=== PATIENT | male | born 1950 | race Caucasian/White ===

== ENCOUNTER 2018-03-26 21:34 | Inpatient (IN) | payer BC, MEDICARE ==
[2018-03-26] MEDS ORDERED: ACETAMINOPHEN TAB 500 MG TAB PO STA (22:10)
[2018-03-26] MEDS ORDERED: IPRATROPIUM-ALBUTEROL 3 ML NEB INHALATION STA (22:22)
--- NOTE | 2018-03-26 22:28 | ED ---
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 Since to the emergency department via EMS from [place] where he is undergoing treatment for heroin addiction. Patient reports that his last use of IV heroin was Sunday of last week, 6 days ago. Patient reports that he injects using a needle into his legs. Patient states that he absolutely does not inject into his port which she has from previous chemotherapy for his lung cancer. The patient reports that for the past few days he's been experiencing URI-like symptoms, he states that he's had fevers at night, chills, sweats, productive cough and generalized fatigue. He reports that this is similar to previous episodes of asked. Patient states that he has had infections from IV heroin use in the past but has never had no carditis or any infection of his heart. Patient reports a cough that is become productive over the past couple of days, worse as high as 103 at home, which improve with antipyretics, fevers or worse at night and associated with diaphoresis and chills. Patient reports he is progressively becoming more fatigued and feels sicker which prompted him to asked to come to the emergency department today. - Related Data Allergies Allergy/AdvReac Type Severity Reaction Status Date / Time No Known Allergies Allergy Verified 03/26/18 21:55 Review of Systems ROS Statement: Those systems with pertinent positive or pertinent negative responses have been documented in the HPI. ROS Other: All systems not noted in ROS Statement are negative. Constitutional: Reports: fever, chills, weakness, night sweats ENT: Denies: throat pain Respiratory: Reports: cough, dyspnea, wheezes Cardiovascular: Reports: palpitations, dyspnea on exertion Endocrine: Reports: fatigue Gastrointestinal: Reports: nausea. Denies: abdominal pain Genitourinary: Denies: dysuria Skin: Denies: rash Neurological: Reports: weakness Past Medical History Past Medical History: Cancer Additional Past Medical History / Comment(s): lung cancer History of Any Multi-Drug Resistant Organisms: None Reported Additional Past Surgical History / Comment(s): right upper lobectomy- lung Past Psychological History: Anxiety, Depression Smoking Status: Current every day smoker Past Alcohol Use History: None Reported Past Drug Use History: None Reported General Exam Limitations: no limitations General appearance: alert, cachectic, other (Appears older than stated age, ill- appearing) Head exam: Present: atraumatic, normocephalic Eye exam: Present: PERRL, other (No torres spots) ENT exam: Present: mucous membranes dry Neck exam: Present: normal inspection Respiratory exam: Present: wheezes, other (Port present in the right chest) Cardiovascular Exam: Present: normal rhythm, tachycardia, other (Cardiac exam limited by tachypnea, tachycardia and wheezing no obvious murmur) GI/Abdominal exam: Present: soft, other (Scaphoid abdomen). Absent: distended Rectal exam: Present: deferred Extremities exam: Present: full ROM, normal capillary refill, other (No Janeway lesions, no Osler nodes, no splinter hemorrhages in the nails, mild clubbing is noted, bilateral lower extremities have multiple sores in variable stages of healing consistent with IV heroin use or skin popping). Absent: pedal edema Back exam: Present: normal inspection Neurological exam: Present: alert, oriented X3 Psychiatric exam: Present: normal affect, normal mood Skin exam: Present: warm, dry Course Vital Signs 03/26/18 03/26/18 03/26/18 21:52 22:33 22:39 Temperature 102.0 F H Pulse Rate 124 H 122 H 124 H Respiratory 20 20 18 Rate Blood Pressure 119/67 O2 Sat by Pulse 95 Oximetry 03/27/18 00:27 Temperature 100.2 F H Pulse Rate 111 H Respiratory 20 Rate Blood Pressure 102/69 O2 Sat by Pulse 93 L Oximetry Medical Decision Making - Medical Decision Making The patient was seen and evaluated, history was obtained from the patient Vital signs were reviewed patient is noted to be tachycardic and febrile She with a history of IV heroin use and lung cancer, 2 out of 4 Sirs criteria and concern for pneumonia, septic workup was ordered Noted To be wheezing and DuoNeb's were orderedt Physical exam reveals no sequela of endocarditis that the patient is very high risk due to his IV drug abuse The port in the right chest is well-healed with no surrounding erythema or signs of infection. Patient denies using the port for IV heroin use. EKG reveals sinus tachycardia with a rate of 116, normal axis, normal intervals , DE 120, QRS 72, QTc 444, there are no acute ST elevations or depressions. No evidence of acute ischemia or infarction. Labs reveal leukocytosis with neutrophilia, consistent with an acute infection X-ray with possible right lower lobe infiltrate The patient risk factors including immunosuppression from previous cancer and IV drug abuse, I will treat with broad-spectrum antibiotics for suspected endocarditis with septic applied. They, is and cefepime were ordered At this time I feel the patient requires admission to the hospital for further treatment and evaluation including but not limited to IV antibiotics, IV fluid resuscitation and an echocardiogram to evaluate for department I did, this was discussed with the patient who is agreeable. Admission orders were placed. Tylenol and Motrin were ordered for antipyretics and discomfort, patient currently no narcotics were ordered. - Lab Data Result diagrams: 03/26/18 23:15 03/26/18 23:15 Lab Results 03/26/18 03/26/18 03/26/18 Range/Units 23:15 23:15 23:15 WBC 17.9 H (3.8-10.6) k/uL RBC 4.95 (4.30-5.90) m/uL Hgb 13.5 (13.0-17.5) gm/dL Hct 43.8 (39.0-53.0) % MCV 88.5 (80.0-100.0) fL MCH 27.4 (25.0-35.0) pg MCHC 30.9 L (31.0-37.0) g/dL RDW 14.8 (11.5-15.5) % Plt Count 392 (150-450) k/uL Neutrophils % 84 % Lymphocytes % 8 % Monocytes % 4 % Eosinophils % 2 % Basophils % 0 % Neutrophils # 15.1 H (1.3-7.7) k/uL Lymphocytes # 1.4 (1.0-4.8) k/uL Monocytes # 0.8 (0-1.0) k/uL Eosinophils # 0.4 (0-0.7) k/uL Basophils # 0.1 (0-0.2) k/uL PT (9.0-12.0) sec INR (<1.2) APTT (22.0-30.0) sec Sodium 136 L (137-145) mmol/L Potassium 4.8 (3.5-5.1) mmol/L Chloride 106 (98-107) mmol/L Carbon Dioxide 24 (22-30) mmol/L Anion Gap 6 mmol/L BUN 31 H (9-20) mg/dL Creatinine 0.80 (0.66-1.25) mg/dL Est GFR (CKD-EPI)AfAm >90 (>60 ml/min/1.73 sqM) Est GFR (CKD-EPI)NonAf >90 (>60 ml/min/1.73 sqM) Glucose 113 H (74-99) mg/dL Plasma Lactic Acid Sunday 1.0 (0.7-2.0) mmol/L Calcium 9.1 (8.4-10.2) mg/dL Total Bilirubin 0.3 (0.2-1.3) mg/dL AST 25 (17-59) U/L ALT 32 (21-72) U/L Alkaline Phosphatase 59 (38-126) U/L Troponin I (0.000-0.034) ng/mL Total Protein 7.0 (6.3-8.2) g/dL Albumin 3.7 (3.5-5.0) g/dL 03/26/18 03/26/18 Range/Units 23:15 23:15 WBC (3.8-10.6) k/uL RBC (4.30-5.90) m/uL Hgb (13.0-17.5) gm/dL Hct (39.0-53.0) % MCV (80.0-100.0) fL MCH (25.0-35.0) pg MCHC (31.0-37.0) g/dL RDW (11.5-15.5) % Plt Count (150-450) k/uL Neutrophils % % Lymphocytes % % Monocytes % % Eosinophils % % Basophils % % Neutrophils # (1.3-7.7) k/uL Lymphocytes # (1.0-4.8) k/uL Monocytes # (0-1.0) k/uL Eosinophils # (0-0.7) k/uL Basophils # (0-0.2) k/uL PT 9.7 (9.0-12.0) sec INR 1.0 (<1.2) APTT 24.4 (22.0-30.0) sec Sodium (137-145) mmol/L Potassium (3.5-5.1) mmol/L Chloride (98-107) mmol/L Carbon Dioxide (22-30) mmol/L Anion Gap mmol/L BUN (9-20) mg/dL Creatinine (0.66-1.25) mg/dL Est GFR (CKD-EPI)AfAm (>60 ml/min/1.73 sqM) Est GFR (CKD-EPI)NonAf (>60 ml/min/1.73 sqM) Glucose (74-99) mg/dL Plasma Lactic Acid Sunday (0.7-2.0) mmol/L Calcium (8.4-10.2) mg/dL Total Bilirubin (0.2-1.3) mg/dL AST (17-59) U/L ALT (21-72) U/L Alkaline Phosphatase (38-126) U/L Troponin I <0.012 (0.000-0.034) ng/mL Total Protein (6.3-8.2) g/dL Albumin (3.5-5.0) g/dL Disposition Clinical Impression: Sepsis, Pneumonia, Intravenous drug abuse, Acute exacerbation of chronic obstructive airways disease Disposition: ADMITTED IP TO THIS HOSP Condition: Fair Referrals: None,Stated [REFERRING] - 1-2 days Decision Time: 00:41
[2018-03-26] MEDS: SODIUM CHLORIDE 0.9% 500 ML IV SCH ×2 (23:00→23:44)
[2018-03-26 23:29] LABS: Basophils # (A) 0.1 k/uL (0-0.2); Basophils % (A) 0 %; Eosinophils # (A) 0.4 k/uL (0-0.7); Eosinophils % (A) 2 %; HCT 43.8 % (39.0-53.0); HGB 13.5 gm/dL (13.0-17.5); Lymphocytes # (A) 1.4 k/uL (1.0-4.8); Lymphocytes % (A) 8 %; MCH 27.4 pg (25.0-35.0); MCHC 30.9 g/dL (31.0-37.0); MCV 88.5 fL (80.0-100.0); Mean Platelet Volume 7.2; Monocytes # (A) 0.8 k/uL (0-1.0); Monocytes % (A) 4 %; Neutrophils # (A) 15.1 k/uL (1.3-7.7); Neutrophils % (A) 84 %; Platelet Count 392 k/uL (150-450); RBC 4.95 m/uL (4.30-5.90); RDW 14.8 % (11.5-15.5); WBC 17.9 k/uL (3.8-10.6)
--- NOTE | 2018-03-26 23:30 | XR ---
EXAMINATION TYPE: XR chest 2V DATE OF EXAM: 03/26/2018 COMPARISON: None HISTORY: Fever and coughing TECHNIQUE: Frontal and lateral views of the chest are obtained. FINDINGS: There is right central venous catheter with tip in the superior vena cava. Heart size is n ormal. Trachea is deviated slightly to the right side. There is pleural thickening at the right lung apex. There is blunting of right costophrenic angle and elevated right diaphragm. There is overall pu lmonary hyperinflation. Bony thorax is intact. There is slight increased density inferior to the right pulmonary hilum on the frontal view consisten t with minimal infiltrate. IMPRESSION: There is pleural diaphragmatic scarring at the right lung base and also pleural thickeni ng at the right lung apex. There is slight volume loss. There is underlying COPD. There is subtle inc reased density in the right lower lobe at the right pulmonary hilum that could relate to minimal infi ltrate. Comparison with old exam would be helpful.
[2018-03-26 23:36] LABS: Partial Thromboplastin Time 24.4 sec (22.0-30.0); Prothrombin Time 9.7 sec (9.0-12.0)
[2018-03-26 23:41] LABS: ALT 32 U/L (21-72); AST 25 U/L (17-59); Albumin 3.7 g/dL (3.5-5.0); Alkaline Phosphatase 59 U/L (38-126); Anion Gap 6 mmol/L; Blood Urea Nitrogen 31 mg/dL (9-20); Calcium 9.1 mg/dL (8.4-10.2); Carbon Dioxide 24 mmol/L (22-30); Chloride 106 mmol/L (98-107); Glucose 113 mg/dL (74-99); Potassium 4.8 mmol/L (3.5-5.1); Sodium 136 mmol/L (137-145); Total Bilirubin 0.3 mg/dL (0.2-1.3)
[2018-03-27] MEDS ORDERED: CEFEPIME 1 GM in SODIUM CHLORIDE 0.9% 50 ML IVPB STA (00:19)
[2018-03-27] MEDS ORDERED: VANCOMYCIN IV PER PHARMACY 1 EACH MISC MISCELLANE PRN (00:19)
[2018-03-27] MEDS ORDERED: NALOXONE 0.4 MG/ML 1 ML VIAL IV PRN (00:20)
[2018-03-27] MEDS ORDERED: IBUPROFEN 400 MG TAB PO PRN (00:20)
[2018-03-27] MEDS: SODIUM CHLORIDE 0.9% 500 ML IV SCH ×2 (00:49→00:50)
[2018-03-27] MEDS ORDERED: VANCOMYCIN 1,250 MG in SODIUM CHLORIDE 0.9% 250 ML IVPB ONE (01:00)
[2018-03-27 01:17] LABS: Amorphous Sediment,Urine Rare /hpf; Appearance,Urine Clear (Clear); Bilirubin,Urine Negative (Negative); Blood,Urine Negative (Negative); Color,Urine Yellow; Glucose,Urine (UA) Negative (Negative); Ketones,Urine Negative (Negative); Leukocyte Esterase,Urine Large (Negative); Mucus,Urine Rare /hpf; Nitrite,Urine Negative (Negative); PH, Urine 6.5 (5.0-8.0); Protein,Urine 1+ (Negative); Specific Gravity,Urine 1.013 (1.001-1.035); Squamous Epithelial Cell,Urine 1 /hpf (0-4); Urobilinogen,Urine <2.0 mg/dL (<2.0); WBC,Urine 20 /hpf (0-5)
[2018-03-27 08:04] LABS: Basophils % (A) 0 %; Eosinophils # (A) 0.2 k/uL (0-0.7); Eosinophils % (A) 2 %; HCT 39.3 % (39.0-53.0); HGB 12.4 gm/dL (13.0-17.5); Lymphocytes # (A) 1.4 k/uL (1.0-4.8); Lymphocytes % (A) 10 %; MCHC 31.5 g/dL (31.0-37.0); MCV 88.8 fL (80.0-100.0); Monocytes # (A) 0.7 k/uL (0-1.0); Monocytes % (A) 5 %; Neutrophils # (A) 10.8 k/uL (1.3-7.7); Neutrophils % (A) 81 %; Platelet Count 321 k/uL (150-450); RBC 4.43 m/uL (4.30-5.90); RDW 14.7 % (11.5-15.5); WBC 13.4 k/uL (3.8-10.6)
[2018-03-27 08:20] LABS: Anion Gap 2 mmol/L; Blood Urea Nitrogen 23 mg/dL (9-20); Calcium 8.4 mg/dL (8.4-10.2); Carbon Dioxide 27 mmol/L (22-30); Chloride 111 mmol/L (98-107); Glucose 83 mg/dL (74-99); Potassium 4.7 mmol/L (3.5-5.1); Sodium 140 mmol/L (137-145)
[2018-03-27] MEDS: NICOTINE 21MG/24HR PATCH TRANSDERM SCH (10:04)
[2018-03-27] MEDS: LEVOFLOXACIN 750MG-D5W PMX 750 MG in DEXTROSE/WATER 1 150ML.BAG IVPB SCH (10:07)
[2018-03-27] MEDS: SODIUM CHLORIDE 0.9% 1,000 ML IV SCH ×3 (10:09→17:07)
--- NOTE | 2018-03-27 12:09 | P.CONS ---
History of Present Illness - Reason for Consult Consult date: 03/27/18 Sepsis, pneumonia, IV drug abuse - History of Present Illness This is a 67-year-old male patient who has a significant past medical history for lung cancer, unknown type treated in 2014 status post right upper lobectomy followed by chemotherapy and radiation therapy. He had no follow-up since 2014. Note the patient has a port that remains in place since that time. He has history of IV drug abuse starting when he was 16 years of age using heroin. His last heroin use was one week ago and he usually injects in his legs mostly his right leg around the knee area. He denies ever using his port for heroin. He recently entered [place] for rehab and has done this on occasions in the past and was abstinent from heroin for up to 6 years. he states that 2 days ago he started having a fever and felt very fatigued and his legs felt like lead. He also developed shortness of breath. He has a chronic cough that is usually white production but now he has a continued cough with sputum of yellow and green color. He denies any blood in his sputum. He denies history of MRSA. He has had no nausea or vomiting but decreased appetite for the last couple of days. His bowel movements have been soft but not diarrhea. He denies any skin changes or abscesses from IV injection. He does complain of chronic right groin pain that makes it sometimes difficult to ambulate. Patient came into [facility] emergency center for evaluation where he was found to be tachycardic, temperature 102, white count 17.9. Urine was clear, leukoesterase large and PVCs 20. Patient denies any urinary pain or burning. Chest x-ray revealed pleural diaphragmatic scarring at the right lung base and also pleural thickening at the right lung apex. There is slight volume loss. Underlying COPD. Subtle increased density in the right lower lobe at the right pulmonary hilum that could relate to minimal infiltrate. Patient was given cefepime and vancomycin and admitted to the [facility] floor. Echocardiogram ordered, blood cultures status received. Patient is currently homeless. Review of Systems All systems: negative Constitutional: Reports anorexia, Reports chills, Reports fatigue, Reports fever , Reports malaise, Reports poor appetite, Reports weakness Eyes: denies blurred vision, denies pain Ears, nose, mouth and throat: Denies dental pain, Denies headache, Denies mouth pain, Denies sore throat, Denies vertigo, Denies voice changes Cardiovascular: Reports lightheadedness, Reports shortness of breath, Denies chest pain, Denies edema, Denies leg edema, Denies syncope Respiratory: Reports cough with sputum, Reports dyspnea, Denies congestion, Denies cough, Denies excessive sputum, Denies hemoptysis, Denies home oxygen Gastrointestinal: Reports loss of appetite, Denies abdominal pain, Denies diarrhea, Denies melena, Denies nausea, Denies vomiting Genitourinary: Denies dysuria, Denies urinary frequency Musculoskeletal: Reports myalgias, Denies frequent falls Musculoskeletal: right: hip pain Integumentary: Denies pruritus, Denies rash, Denies wounds Neurological: Denies confusion, Denies numbness, Denies weakness Psychiatric: Denies anxiety, Denies depression Endocrine: Denies fatigue, Denies weight change Past Medical History Past Medical History: Cancer Additional Past Medical History / Comment(s): lung cancer treated in 2014 status post right upper lobectomy, chemotherapy and radiation therapy History of Any Multi-Drug Resistant Organisms: None Reported Additional Past Surgical History / Comment(s): right upper lobectomy- lung, port placement Past Psychological History: Anxiety, Depression Smoking Status: Current every day smoker Past Alcohol Use History: None Reported Additional Past Alcohol Use History / Comment(s): is a smoker of a half a pack of cigarettes per day since he was 16 years of age. He is also used heroin IV off-and-on since he was 16 years of age. Patient is homeless. Past Drug Use History: None Reported Medications and Allergies Home Medications Medication Instructions Recorded Confirmed Type Acetaminophen Tab [Tylenol Tab] 650 mg PO Q4H PRN 03/27/18 03/27/18 History Albuterol Inhaler [Ventolin Hfa 1 - 2 puff INHALATION RT-Q6H PRN 03/27/18 History Inhaler] Calcium/Magnesium 1000mg/500mg 1 tab PO TID PRN 03/27/18 03/27/18 History Chlorpheniramine Maleate 4 mg PO Q4H PRN 03/27/18 03/27/18 History [Chlor-Trimeton] Fluticasone/Salmeterol [Advair 1 puff INHALATION RT-BID@06,1730 03/27/18 History 250-50 Diskus] Ibuprofen [Motrin] 1 tab PO Q6HR PRN 03/27/18 03/27/18 History Multivitamins, Thera [Multivitamin 1 tab PO DAILY 03/27/18 03/27/18 History (formulary)] Ondansetron HCl [Zofran] 8 mg PO Q6H PRN 03/27/18 03/27/18 History Ondansetron [Zofran] 4 mg IM Q6H PRN 03/27/18 03/27/18 History Thiamine [Vitamin B-1] 100 mg PO DAILY 03/27/18 03/27/18 History busPIRone HCl [Buspar] 10 mg PO DIRECTED PRN 03/27/18 03/27/18 History cloNIDine HCL [Catapres] 0.1 mg PO Q4H PRN 03/27/18 03/27/18 History traZODone HCL 50 - 150 mg PO HS 03/27/18 03/27/18 History Allergies Allergy/AdvReac Type Severity Reaction Status Date / Time No Known Allergies Allergy Verified 03/27/18 10:41 Physical Exam Vitals: Vital Signs Temp Pulse Resp BP Pulse Ox 03/27/18 08:12 97.2 F L 87 18 163/87 98 03/27/18 06:21 84 20 134/68 99 03/27/18 04:22 58 L 20 139/84 93 L 03/27/18 00:27 100.2 F H 111 H 20 102/69 93 L 03/26/18 22:39 124 H 18 03/26/18 22:33 122 H 20 03/26/18 21:52 102.0 F H 124 H 20 119/67 95 Intake and Output 03/26/18 03/27/18 03/27/18 22:59 06:59 14:59 Other: Weight 52.163 kg Gen: This is a 67-year-old cachectic appearing male patient seen in the ER. Patient is on a stretcher and appears to be comfortable. No respiratory distress is noted. HEENT: Head is atraumatic, normocephalic. Pupils equal, round. Sclerae is anicteric. Oral mucous membranes are moist. No thrush noted. NECK: Supple. No JVD. No lymphadenopathy. No thyromegaly. LUNGS: Scattered inspiratory expiratory wheezing with good air exchange. No intercostal retractions. HEART: Regular rate and rhythm. No murmur. Port to the right upper anterior chest wall, no tenderness, erythema. ABDOMEN: Soft. Bowel sounds are present. No masses. No tenderness. EXTREMITIES: No pedal edema. No calf tenderness.Dorsalis pedis +2 bilaterally. Patient has old puncture sites to the knee areas on both legs more so on the right. No signs of abscess, open wound, drainage. No tender areas. Patient does have some tenderness to the right groin area. NEUROLOGICAL: Patient is awake, alert and oriented x3. Cranial nerves 2 through 12 are grossly intact. Results Results: Laboratory Results WBC 13.4 k/uL (3.8-10.6) H 03/27/18 07:34 RBC 4.43 m/uL (4.30-5.90) 03/27/18 07:34 Hgb 12.4 gm/dL (13.0-17.5) L 03/27/18 07:34 Hct 39.3 % (39.0-53.0) 03/27/18 07:34 MCV 88.8 fL (80.0-100.0) 03/27/18 07:34 MCH 28.0 pg (25.0-35.0) 03/27/18 07:34 MCHC 31.5 g/dL (31.0-37.0) 03/27/18 07:34 RDW 14.7 % (11.5-15.5) 03/27/18 07:34 Plt Count 321 k/uL (150-450) 03/27/18 07:34 Neutrophils % 81 % 03/27/18 07:34 Lymphocytes % 10 % 03/27/18 07:34 Monocytes % 5 % 03/27/18 07:34 Eosinophils % 2 % 03/27/18 07:34 Basophils % 0 % 03/27/18 07:34 Neutrophils # 10.8 k/uL (1.3-7.7) H 03/27/18 07:34 Lymphocytes # 1.4 k/uL (1.0-4.8) 03/27/18 07:34 Monocytes # 0.7 k/uL (0-1.0) 03/27/18 07:34 Eosinophils # 0.2 k/uL (0-0.7) 03/27/18 07:34 Basophils # 0.0 k/uL (0-0.2) 03/27/18 07:34 PT 9.7 sec (9.0-12.0) 03/26/18 23:15 INR 1.0 (<1.2) 03/26/18 23:15 APTT 24.4 sec (22.0-30.0) 03/26/18 23:15 Sodium 140 mmol/L (137-145) 03/27/18 07:34 Potassium 4.7 mmol/L (3.5-5.1) 03/27/18 07:34 Chloride 111 mmol/L (98-107) H 03/27/18 07:34 Carbon Dioxide 27 mmol/L (22-30) 03/27/18 07:34 Anion Gap 2 mmol/L 03/27/18 07:34 BUN 23 mg/dL (9-20) H 03/27/18 07:34 Creatinine 0.81 mg/dL (0.66-1.25) 03/27/18 07:34 Est GFR (CKD-EPI)AfAm >90 (>60 ml/min/1.73 sqM) 03/27/18 07:34 Est GFR (CKD-EPI)NonAf >90 (>60 ml/min/1.73 sqM) 03/27/18 07:34 Glucose 83 mg/dL (74-99) 03/27/18 07:34 Plasma Lactic Acid Sunday 1.0 mmol/L (0.7-2.0) 03/26/18 23:15 Calcium 8.4 mg/dL (8.4-10.2) 03/27/18 07:34 Total Bilirubin 0.3 mg/dL (0.2-1.3) 03/26/18 23:15 AST 25 U/L (17-59) 03/26/18 23:15 ALT 32 U/L (21-72) 03/26/18 23:15 Alkaline Phosphatase 59 U/L (38-126) 03/26/18 23:15 Troponin I <0.012 ng/mL (0.000-0.034) 03/26/18 23:15 Total Protein 7.0 g/dL (6.3-8.2) 03/26/18 23:15 Albumin 3.7 g/dL (3.5-5.0) 03/26/18 23:15 Urine Color Yellow 03/27/18 00:35 Urine Appearance Clear (Clear) 03/27/18 00:35 Urine pH 6.5 (5.0-8.0) 03/27/18 00:35 Ur Specific [place] 1.013 (1.001-1.035) 03/27/18 00:35 Urine Protein 1+ (Negative) H 03/27/18 00:35 Urine Glucose (UA) Negative (Negative) 03/27/18 00:35 Urine Ketones Negative (Negative) 03/27/18 00:35 Urine Blood Negative (Negative) 03/27/18 00:35 Urine Nitrite Negative (Negative) 03/27/18 00:35 Urine Bilirubin Negative (Negative) 03/27/18 00:35 Urine Urobilinogen <2.0 mg/dL (<2.0) 03/27/18 00:35 Ur Leukocyte Esterase Large (Negative) H 03/27/18 00:35 Urine WBC 20 /hpf (0-5) H 03/27/18 00:35 Ur Squamous Epith Cells 1 /hpf (0-4) 03/27/18 00:35 Amorphous Sediment Rare /hpf (None) H 03/27/18 00:35 Urine Mucus Rare /hpf (None) H 03/27/18 00:35 CBC & Chem 7: 03/27/18 07:34 03/27/18 07:34 Labs: Abnormal Lab Results - Last 24 Hours (Table) 03/26/18 03/26/18 03/27/18 Range/Units 23:15 23:15 00:35 WBC 17.9 H (3.8-10.6) k/uL Hgb (13.0-17.5) gm/dL MCHC 30.9 L (31.0-37.0) g/dL Neutrophils # 15.1 H (1.3-7.7) k/uL Sodium 136 L (137-145) mmol/L Chloride (98-107) mmol/L BUN 31 H (9-20) mg/dL Glucose 113 H (74-99) mg/dL Urine Protein 1+ H (Negative) Ur Leukocyte Esterase Large H (Negative) Urine WBC 20 H (0-5) /hpf Amorphous Sediment Rare H (None) /hpf Urine Mucus Rare H (None) /hpf 03/27/18 03/27/18 Range/Units 07:34 07:34 WBC 13.4 H (3.8-10.6) k/uL Hgb 12.4 L (13.0-17.5) gm/dL MCHC (31.0-37.0) g/dL Neutrophils # 10.8 H (1.3-7.7) k/uL Sodium (137-145) mmol/L Chloride 111 H (98-107) mmol/L BUN 23 H (9-20) mg/dL Glucose (74-99) mg/dL Urine Protein (Negative) Ur Leukocyte Esterase (Negative) Urine WBC (0-5) /hpf Amorphous Sediment (None) /hpf Urine Mucus (None) /hpf Assessment and Plan Plan: This is a 67-year-old male patient who presented to hospital with signs of sepsis secondary to right sided pneumonia. The patient does have a echocardiogram, blood cultures status received in process. No soft tissue or skin infections are noted at this time but vancomycin will be continued for now. Levaquin added for suspected gram-negative pneumonia. Nicotine patch added and nebulizer treatments as well as multivitamin. Continue supportive care. Further recommendations as patient progresses. The above dictated assessment and findings were discussed with Dr. Brice. The impression and plan of care have been directed as dictated. Ilene Barr nurse practitioner acting as scribe for Dr. Brice.
[2018-03-27] MEDS: VANCOMYCIN 1,000 MG in SODIUM CHLORIDE 0.9% 250 ML IVPB SCH (13:25)
--- NOTE | 2018-03-27 15:34 | P.HPIM ---
History of Present Illness This is a pleasant 67 years old male with past medical history of COPD, loose arthritis, right upper lobe lung cancer status post surgery in 2014, status post radial and chemotherapy. Hepatitis C. Multiple joint disease. History of MRSA. Her presents because of shortness of breath and fever of 2 days' duration with no associated chest pain. via EMS from [place] where he is undergoing treatment for heroin addiction. Patient reports that his last use of IV heroin was Sunday of last week, 6 days ago. Patient reports prior upper respiratory tract symptoms. Patient has, yellow phlegm. Chest x-ray shows right lower lobe infiltrate Review of Systems CONSTITUTIONAL: No fever, no malaise, no fatigue. HEENT: No recent visual problems or hearing problems. Denied any sore throat. CARDIOVASCULAR: No orthopnea, PND, no palpitations, no syncope. PULMONARY: No shortness of breath, no cough, no hemoptysis. GASTROINTESTINAL: No diarrhea, no nausea, no vomiting, no abdominal pain. Normoactive bowel sounds. NEUROLOGICAL: No headaches, no weakness, no numbness. HEMATOLOGICAL: Denies any bleeding or petechiae. GENITOURINARY: Denies any burning micturition, frequency, or urgency. MUSCULOSKELETAL/RHEUMATOLOGICAL: Denies any joint pain, swelling, or any muscle pain. ENDOCRINE: Denies any polyuria or polydipsia. Past Medical History Past Medical History: Cancer, COPD, Liver Disease, Osteoarthritis (OA) Additional Past Medical History / Comment(s): 2013 R upper lobe lung cancer with surgery, radiation and chemo, hepatitis C, occasional insomnia, arthritis multiple joints especially in shoulders, R hip and back, past R clavicle fracture. History of Any Multi-Drug Resistant Organisms: MRSA Date of last positivie culture/infection: 1989 MDRO Source:: R clavicle Additional Past Surgical History / Comment(s): 2013 right upper lobectomy- lung , R chest port placement Past Anesthesia/Blood Transfusion Reactions: No Reported Reaction Smoking Status: Current every day smoker - Past Family History Mother Family Medical History: Hypertension Additional Family Medical History / Comment(s): Mother is . Father History Unknown: Yes Medications and Allergies Home Medications Medication Instructions Recorded Confirmed Type Acetaminophen Tab [Tylenol Tab] 650 mg PO Q4H PRN 03/27/18 03/27/18 History Albuterol Inhaler [Ventolin Hfa 1 - 2 puff INHALATION RT-Q6H PRN 03/27/18 History Inhaler] Calcium/Magnesium 1000mg/500mg 1 tab PO TID PRN 03/27/18 03/27/18 History Chlorpheniramine Maleate 4 mg PO Q4H PRN 03/27/18 03/27/18 History [Chlor-Trimeton] Fluticasone/Salmeterol [Advair 1 puff INHALATION RT-BID@06,1730 03/27/18 History 250-50 Diskus] Ibuprofen [Motrin] 1 tab PO Q6HR PRN 03/27/18 03/27/18 History Multivitamins, Thera [Multivitamin 1 tab PO DAILY 03/27/18 03/27/18 History (formulary)] Ondansetron HCl [Zofran] 8 mg PO Q6H PRN 03/27/18 03/27/18 History Ondansetron [Zofran] 4 mg IM Q6H PRN 03/27/18 03/27/18 History RX: cloNIDine HCL [Catapres] 0.1 mg PO Q4H PRN 03/27/18 03/27/18 History RX: traZODone HCL 50 - 150 mg PO HS 03/27/18 03/27/18 History Thiamine [Vitamin B-1] 100 mg PO DAILY 03/27/18 03/27/18 History busPIRone HCl [Buspar] 10 mg PO DIRECTED PRN 03/27/18 03/27/18 History Allergies Allergy/AdvReac Type Severity Reaction Status Date / Time No Known Allergies Allergy Verified 03/27/18 10:41 Physical Exam Vitals: Vital Signs Temp Pulse Pulse Resp BP BP Pulse Ox 03/27/18 13:14 98 F 89 18 118/76 97 03/27/18 11:27 97.6 F 92 20 111/78 97 03/27/18 10:45 98.9 F 89 18 127/87 98 03/27/18 08:12 97.2 F L 87 18 163/87 98 03/27/18 06:21 84 20 134/68 99 03/27/18 04:22 58 L 20 139/84 93 L 03/27/18 00:27 100.2 F H 111 H 20 102/69 93 L 03/26/18 22:39 124 H 18 03/26/18 22:33 122 H 20 03/26/18 21:52 102.0 F H 124 H 20 119/67 95 Intake and Output 03/27/18 03/27/18 03/27/18 06:59 14:59 22:59 Intake Total 240 Balance 240 Intake: Oral 240 Other: # Voids 2 GENERAL: The patient is alert and oriented x3, not in any acute distress. Well developed, well nourished. HEENT: Pupils are round and equally reacting to light. EOMI. No scleral icterus. No conjunctival pallor. Normocephalic, atraumatic. No pharyngeal erythema. No thyromegaly. CARDIOVASCULAR: S1 and S2 present. No murmurs, rubs, or gallops. PULMONARY: Chest is clear to auscultation, no wheezing or crackles. ABDOMEN: Soft, nontender, nondistended, normoactive bowel sounds. No palpable organomegaly. MUSCULOSKELETAL: No joint swelling or deformity. EXTREMITIES: No cyanosis, clubbing, or pedal edema. NEUROLOGICAL: Gross neurological examination did not reveal any focal deficits. SKIN: No rashes. Results CBC & Chem 7: 03/27/18 07:34 03/27/18 07:34 Labs: Abnormal Lab Results - Last 24 Hours (Table) 03/26/18 03/26/18 03/27/18 Range/Units 23:15 23:15 00:35 WBC 17.9 H (3.8-10.6) k/uL Hgb (13.0-17.5) gm/dL MCHC 30.9 L (31.0-37.0) g/dL Neutrophils # 15.1 H (1.3-7.7) k/uL Sodium 136 L (137-145) mmol/L Chloride (98-107) mmol/L BUN 31 H (9-20) mg/dL Glucose 113 H (74-99) mg/dL Urine Protein 1+ H (Negative) Ur Leukocyte Esterase Large H (Negative) Urine WBC 20 H (0-5) /hpf Amorphous Sediment Rare H (None) /hpf Urine Mucus Rare H (None) /hpf 03/27/18 03/27/18 Range/Units 07:34 07:34 WBC 13.4 H (3.8-10.6) k/uL Hgb 12.4 L (13.0-17.5) gm/dL MCHC (31.0-37.0) g/dL Neutrophils # 10.8 H (1.3-7.7) k/uL Sodium (137-145) mmol/L Chloride 111 H (98-107) mmol/L BUN 23 H (9-20) mg/dL Glucose (74-99) mg/dL Urine Protein (Negative) Ur Leukocyte Esterase (Negative) Urine WBC (0-5) /hpf Amorphous Sediment (None) /hpf Urine Mucus (None) /hpf Microbiology - Last 24 Hours (Table) 03/27/18 00:35 Urine Culture - Preliminary Urine,Voided Thrombosis Risk Factor Assmnt - Choose All That Apply Any of the Below Risk Factors Present?: Yes Each Factor Represents 1 point: Abnormal pulmonary function (COPD) Other Risk Factors: Yes Each Risk Factor Represents 2 Points: Age 61-74 years, Central venous access, Malignancy Other congenital or acquired thrombophilia - If yes, enter type in comment: No Thrombosis Risk Factor Assessment Total Risk Factor Score: 7 Thrombosis Risk Factor Assessment Level: High Risk Assessment and Plan Assessment: Community-acquired pneumonia, right lower lobe COPD with acute exacerbation Heroin addict, currently in [place] Current smoker, about half pack per day. Nicotine patch h/o arthritis, Multiple joint disease h/o right upper lobe lung cancer status post surgery in 2013, status post radial and chemotherapy Hepatitis C History of MRSA. Plan: This is a pleasant 67 years old male with past medical history of COPD and lung cancer, presents with pneumonia. Continue same treatment. Continue with symptomatic treatment. Resume home medication. Monitor lytes and vitals. Resume home medications. Continue with antibiotics. Follow-up culture results. Continue with IV fluids. Continue the breathing treatments and oxygen. Pulmonary consult, and consult also infectious disease GI and DVT prophylaxis. Further recommendation based on the clinical course of the patient DVT prophylaxis subcutaneous heparin GI prophylaxis Pepcid PT/OT: Pending
--- NOTE | 2018-03-27 15:58 | CDI ---
Last Revision, July 2017 Documentation Clarification Form Date: 03/27/2018 3:45:59 PM From: Octavia Han [facility], CCDS Admit Date: 03/27/2018 12:20:00 AM Patient Name: Haile Mcmillan Visit Number: [id number] Discharge Date: ATTENTION: The Clinical Documentation Specialists (CDI) and [facility] Coding Staff appreciate your assistance in clarifying documentation. Please respond to the clarification below the line at the bottom and electronically sign. The CDI & [facility] Coding staff will review the response and follow-up if needed. Please note: Queries are made part of the Legal Health Record. If you have any questions, please contact the author of this message via ITS. Ronen Rothman MD 67 yo male, presented to ER with SOB, URI symptoms, fevers,s chills, sweats & productive cough. Diagnosed with pneumonia. (Per ID consult: Sepsis & possible gram negative pneumonia). Described as cachetic, ill-appearing, older than stated age and homeless. History/Risk Factors: IV Heroin drug use, currently residing at [facility], Lung CA status post RUL lobectomy, chemotherapy & radiation. Smoker. Clinical Indicators: VS: T 102.0, P 124^, R 20, BP 119/67 - 102/69; PO 95 RA-93 RA BMI: 17.5 Labs: T Prot (7.0), Albumin (3.7) Dietary: currently NPO Treatment: IV fluid, Albuterol INH, IV Cefepime, IV Narcan, IV Vanco, IV Levaquin. In your professional opinion, can you please clarify if these findings signify one of the following conditions? Mild Protein-Calorie Malnutrition Moderate Protein-Calorie Malnutrition Severe Protein-Calorie Malnutrition Other condition, please specify Unable to determine Please continue to document in your progress notes and discharge summary in order to capture severity of illness and risk of mortality. Include clinical findings that support your diagnosis. Unable to determine MTDD
[2018-03-27] MEDS: IPRATROPIUM-ALBUTEROL 3 ML NEB INHALATION SCH ×2 (16:09→19:44)
--- NOTE | 2018-03-27 23:38 | P.CON ---
Consult Note - . Consult date: 03/27/18 Assessment/Plan:: This is a 67-year-old male patient who has a significant past medical history for lung cancer, unknown type treated in 2014 status post right upper lobectomy followed by chemotherapy and radiation therapy. He had no follow-up since 2014. Note the patient has a port that remains in place since that time. He has history of IV drug abuse starting when he was 16 years of age using heroin. His last heroin use was one week ago and he usually injects in his legs mostly his right leg around the knee area. He denies ever using his port for heroin. He recently entered [place] for rehab and has done this on occasions in the past and was abstinent from heroin for up to 6 years. he states that 2 days ago he started having a fever and felt very fatigued and his legs felt like lead. He also developed shortness of breath. He has a chronic cough that is usually white production but now he has a continued cough with sputum of yellow and green color. He denies any blood in his sputum. He denies history of MRSA. He has had no nausea or vomiting but decreased appetite for the last couple of days. His bowel movements have been soft but not diarrhea. He denies any skin changes or abscesses from IV injection. He does complain of chronic right groin pain that makes it sometimes difficult to ambulate. Patient came into [facility] emergency center for evaluation where he was found to be tachycardic, temperature 102, white count 17.9. Urine was clear, leukoesterase large and PVCs 20. Patient denies any urinary pain or burning. Chest x-ray revealed pleural diaphragmatic scarring at the right lung base and also pleural thickening at the right lung apex. There is slight volume loss. Underlying COPD. Subtle increased density in the right lower lobe at the right pulmonary hilum that could relate to minimal infiltrate. Patient was given cefepime and vancomycin and admitted to the MedSurg floor. Echocardiogram ordered, blood cultures status received. Patient is currently homeless. please see consult note as dictated by nurse practitioner Claire Ilene Barr. 67 year old male with active IDU with Heroin, presents with fever progressive fatigue and malaise with some cough and sputum production without hemoptysis or chest pain. Patient is noted to have of 102, leukocytosis and abnormal chest x -ray . at this time cultures are in process and the patient is feeling better since admission. Fluids, antibiotic therapy have allowed marked improvement.the patient's urinalysis is mildly abnormal, the patient relates that he is not completely emptying his bladder. We have asked nursing staff to perform a post void bladder scan to quantify the residual volume. If elevated will need further evaluation, as could be portal of infection. Antibiotic therapy with Vanco and Levaquin for now while cultures are in process. Will likely go back to rehab at discharge, hopefully blood culture negative because IV antibiotic not allowed at rehab. I agree with the evaluation , assessment and plan as dictated by nurse practitioner Mrs. Ilene Barr.
[2018-03-28] MEDS: VANCOMYCIN 1,000 MG in SODIUM CHLORIDE 0.9% 250 ML IVPB SCH ×2 (01:42→14:30)
[2018-03-28] MEDS: SODIUM CHLORIDE 0.9% 1,000 ML IV SCH ×6 (05:17→23:38)
[2018-03-28] MEDS: NICOTINE 21MG/24HR PATCH TRANSDERM SCH (07:12)
--- NOTE | 2018-03-28 07:31 | ECHOF ---
Referral Reason:sepsis in IVDA, concern for endocarditis MEASUREMENTS -------- HEIGHT: 172.7 cm WEIGHT: 52.2 kg BP: 118/76 RVIDd: 2.9 cm (< 3.3) IVSd: 0.9 cm (0.6 - 1.1) LVIDd: 4.4 cm (3.9 - 5.3) LVPWd: 1.1 cm (0.6 - 1.1) IVSs: 1.2 cm LVIDs: 2.8 cm LVPWs: 1.4 cm LAESV Index (A-L): 37.80 ml/m AV Cusp: 2.0 cm (1.5 - 2.6) MV E Tommy: 0.41 m/s MV DecT: 215 ms MV A Tommy: 0.61 m/s MV E/A Ratio: 0.67 RAP: 5.00 mmHg RVSP: 33.47 mmHg FINDINGS -------- Sinus rhythm. This was a technically good study. The left ventricular size is normal. Left ventricular wall thickness is normal. Overall left vent ricular systolic function is normal with, an EF between 55 - 60 %. The right ventricle is normal in size and function. LA is moderately dilated 34-39 ml/m2 The right atrium is normal in size. The aortic valve is trileaflet, and appears structurally normal. No aortic stenosis or regurgitation. The mitral valve is normal. Mild mitral regurgitation is present. Mild tricuspid regurgitation present. There is no evidence of pulmonary hypertension. The right v entricular systolic pressure, as measured by Doppler, is 33.47mmHg. Trace/mild (physiologic) pulmonic regurgitation. The aortic root size is normal. Normal inferior vena cava with normal inspiratory collapse consistent with estimated right atrial pre ssure of 5 mmHg. There is no pericardial effusion. CONCLUSIONS -------- 1. Sinus rhythm. 2. This was a technically good study. 3. The left ventricular size is normal. 4. Left ventricular wall thickness is normal. 5. Overall left ventricular systolic function is normal with, an EF between 55 - 60 %. 6. LA is moderately dilated 34-39 ml/m2 7. The aortic valve is trileaflet, and appears structurally normal. No aortic stenosis or regurgitati on. 8. Mild mitral regurgitation is present. 9. Mild tricuspid regurgitation present. 10. There is no evidence of pulmonary hypertension. 11. Trace/mild (physiologic) pulmonic regurgitation. 12. The aortic root size is normal. 13. There is no pericardial effusion. DAMASCENER: Jerome Joaquin RDCS
[2018-03-28 08:08] LABS: Anion Gap 6 mmol/L; Blood Urea Nitrogen 19 mg/dL (9-20); Calcium 8.6 mg/dL (8.4-10.2); Carbon Dioxide 21 mmol/L (22-30); Chloride 113 mmol/L (98-107); Glucose 91 mg/dL (74-99); Potassium 4.4 mmol/L (3.5-5.1); Sodium 140 mmol/L (137-145)
[2018-03-28 08:41] LABS: Basophils % (A) 0 %; Eosinophils # (A) 0.5 k/uL (0-0.7); Eosinophils % (A) 5 %; HCT 38.3 % (39.0-53.0); Hypochromasia Moderate; Lymphocytes # (A) 0.9 k/uL (1.0-4.8); Lymphocytes % (A) 11 %; MCH 28.2 pg (25.0-35.0); MCHC 31.2 g/dL (31.0-37.0); MCV 90.2 fL (80.0-100.0); Mean Platelet Volume 7.5; Monocytes # (A) 0.6 k/uL (0-1.0); Monocytes % (A) 7 %; Neutrophils # (A) 6.5 k/uL (1.3-7.7); Neutrophils % (A) 75 %; Platelet Count 314 k/uL (150-450); RBC 4.25 m/uL (4.30-5.90); RDW 14.4 % (11.5-15.5); WBC 8.6 k/uL (3.8-10.6)
[2018-03-28] MEDS: IPRATROPIUM-ALBUTEROL 3 ML NEB INHALATION SCH ×3 (09:30→18:44)
[2018-03-28] MEDS ORDERED: VANCOMYCIN TROUGH DUE 1 EACH MISC MISCELLANE ONE (12:00)
[2018-03-28] MEDS: MULTIVITAMINS, THERA 1 EACH TAB PO SCH (12:42)
[2018-03-28] MEDS: LEVOFLOXACIN 750MG-D5W PMX 750 MG in DEXTROSE/WATER 1 150ML.BAG IVPB SCH (12:42)
[2018-03-28 14:05] VITALS: BMI 17.4
--- NOTE | 2018-03-28 23:14 | P.PN ---
Subjective Progress Note Date: 03/28/18 This is a 67-year-old male patient who has a significant past medical history for lung cancer, unknown type treated in 2014 status post right upper lobectomy followed by chemotherapy and radiation therapy. He had no follow-up since 2014. Note the patient has a port that remains in place since that time. He has history of IV drug abuse starting when he was 16 years of age using heroin. His last heroin use was one week ago and he usually injects in his legs mostly his right leg around the knee area. He denies ever using his port for heroin. He recently entered [place] for rehab and has done this on occasions in the past and was abstinent from heroin for up to 6 years. he states that 2 days ago he started having a fever and felt very fatigued and his legs felt like lead. He also developed shortness of breath. He has a chronic cough that is usually white production but now he has a continued cough with sputum of yellow and green color. He denies any blood in his sputum. He denies history of MRSA. He has had no nausea or vomiting but decreased appetite for the last couple of days. His bowel movements have been soft but not diarrhea. He denies any skin changes or abscesses from IV injection. He does complain of chronic right groin pain that makes it sometimes difficult to ambulate. Patient came into [facility] emergency center for evaluation where he was found to be tachycardic, temperature 102, white count 17.9. Urine was clear, leukoesterase large and PVCs 20. Patient denies any urinary pain or burning. Chest x-ray revealed pleural diaphragmatic scarring at the right lung base and also pleural thickening at the right lung apex. There is slight volume loss. Underlying COPD. Subtle increased density in the right lower lobe at the right pulmonary hilum that could relate to minimal infiltrate. Patient was given cefepime and vancomycin and admitted to the MedSur floor. Echocardiogram ordered, blood cultures status received. Patient is currently homeless. 03/28/2018 patient is feeling better today. He is less short of breath. Not having fevers.he is inquiring when he was well enough to be discharged to go back to rehab. Objective - Vital Signs Vital signs: Vital Signs Temp 98.6 F 03/28/18 21:00 Pulse 114 H 03/28/18 21:00 Resp 16 03/28/18 21:00 BP 134/79 03/28/18 21:00 Pulse Ox 97 03/28/18 21:00 Intake & Output 03/28/18 03/28/18 03/29/18 06:59 18:59 06:59 Intake Total 1590 1360 590 Balance 1590 1360 590 Weight 52.163 kg Intake: Intake, IV Titration 1000 1000 Amount Sodium Chloride 0.9% 1, 1000 1000 000 ml @ 125 mls/hr IV . Q8H [facility] Rx#:[id number] Oral 590 360 590 Other: Voiding Method Toilet Toilet # Voids 5 5 2 - Exam Gen: This is a 67-year-old cachectic appearing male patient seen in the ER. Patient is on a stretcher and appears to be comfortable. No respiratory distress is noted. HEENT: Head is atraumatic, normocephalic. Pupils equal, round. Sclerae is anicteric. Oral mucous membranes are moist. No thrush noted. NECK: Supple. No JVD. No lymphadenopathy. No thyromegaly. LUNGS: Scattered inspiratory expiratory wheezing with good air exchange. No intercostal retractions. HEART: Regular rate and rhythm. No murmur. Port to the right upper anterior chest wall, no tenderness, erythema. ABDOMEN: Soft. Bowel sounds are present. No masses. No tenderness. EXTREMITIES: No pedal edema. No calf tenderness.Dorsalis pedis +2 bilaterally. Patient has old puncture sites to the knee areas on both legs more so on the right. No signs of abscess, open wound, drainage. No tender areas. Patient does have some tenderness to the right groin area. NEUROLOGICAL: Patient is awake, alert and oriented x3 - Labs CBC & Chem 7: 03/28/18 06:51 03/28/18 06:51 Labs: Abnormal Lab Results - Last 24 Hours (Table) 03/28/18 03/28/18 Range/Units 06:51 06:51 RBC 4.25 L (4.30-5.90) m/uL Hgb 12.0 L (13.0-17.5) gm/dL Hct 38.3 L (39.0-53.0) % Lymphocytes # 0.9 L (1.0-4.8) k/uL Chloride 113 H (98-107) mmol/L Carbon Dioxide 21 L (22-30) mmol/L Microbiology - Last 24 Hours (Table) 03/27/18 00:35 Urine Culture - Final Urine,Voided 03/27/18 17:10 Gram Stain - Preliminary Sputum Sputum Culture - Preliminary 03/26/18 23:15 Blood Culture - Preliminary Blood No Growth after 24 hours Laboratory Results WBC 8.6 k/uL (3.8-10.6) 03/28/18 06:51 RBC 4.25 m/uL (4.30-5.90) L 03/28/18 06:51 Hgb 12.0 gm/dL (13.0-17.5) L 03/28/18 06:51 Hct 38.3 % (39.0-53.0) L 03/28/18 06:51 MCV 90.2 fL (80.0-100.0) 03/28/18 06:51 MCH 28.2 pg (25.0-35.0) 03/28/18 06:51 MCHC 31.2 g/dL (31.0-37.0) 03/28/18 06:51 RDW 14.4 % (11.5-15.5) 03/28/18 06:51 Plt Count 314 k/uL (150-450) 03/28/18 06:51 Neutrophils % 75 % 03/28/18 06:51 Lymphocytes % 11 % 03/28/18 06:51 Monocytes % 7 % 03/28/18 06:51 Eosinophils % 5 % 03/28/18 06:51 Basophils % 0 % 03/28/18 06:51 Neutrophils # 6.5 k/uL (1.3-7.7) 03/28/18 06:51 Lymphocytes # 0.9 k/uL (1.0-4.8) L 03/28/18 06:51 Monocytes # 0.6 k/uL (0-1.0) 03/28/18 06:51 Eosinophils # 0.5 k/uL (0-0.7) 03/28/18 06:51 Basophils # 0.0 k/uL (0-0.2) 03/28/18 06:51 Hypochromasia Moderate 03/28/18 06:51 PT 9.7 sec (9.0-12.0) 03/26/18 23:15 INR 1.0 (<1.2) 03/26/18 23:15 APTT 24.4 sec (22.0-30.0) 03/26/18 23:15 Sodium 140 mmol/L (137-145) 03/28/18 06:51 Potassium 4.4 mmol/L (3.5-5.1) 03/28/18 06:51 Chloride 113 mmol/L (98-107) H 03/28/18 06:51 Carbon Dioxide 21 mmol/L (22-30) L 03/28/18 06:51 Anion Gap 6 mmol/L 03/28/18 06:51 BUN 19 mg/dL (9-20) 03/28/18 06:51 Creatinine 0.86 mg/dL (0.66-1.25) 03/28/18 06:51 Est GFR (CKD-EPI)AfAm >90 (>60 ml/min/1.73 sqM) 03/28/18 06:51 Est GFR (CKD-EPI)NonAf >90 (>60 ml/min/1.73 sqM) 03/28/18 06:51 Glucose 91 mg/dL (74-99) 03/28/18 06:51 Plasma Lactic Acid Sunday 1.0 mmol/L (0.7-2.0) 03/26/18 23:15 Calcium 8.6 mg/dL (8.4-10.2) 03/28/18 06:51 Total Bilirubin 0.3 mg/dL (0.2-1.3) 03/26/18 23:15 AST 25 U/L (17-59) 03/26/18 23:15 ALT 32 U/L (21-72) 03/26/18 23:15 Alkaline Phosphatase 59 U/L (38-126) 03/26/18 23:15 Troponin I <0.012 ng/mL (0.000-0.034) 03/26/18 23:15 Total Protein 7.0 g/dL (6.3-8.2) 03/26/18 23:15 Albumin 3.7 g/dL (3.5-5.0) 03/26/18 23:15 Urine Color Yellow 03/27/18 00:35 Urine Appearance Clear (Clear) 03/27/18 00:35 Urine pH 6.5 (5.0-8.0) 03/27/18 00:35 Ur Specific Gore 1.013 (1.001-1.035) 03/27/18 00:35 Urine Protein 1+ (Negative) H 03/27/18 00:35 Urine Glucose (UA) Negative (Negative) 03/27/18 00:35 Urine Ketones Negative (Negative) 03/27/18 00:35 Urine Blood Negative (Negative) 03/27/18 00:35 Urine Nitrite Negative (Negative) 03/27/18 00:35 Urine Bilirubin Negative (Negative) 03/27/18 00:35 Urine Urobilinogen <2.0 mg/dL (<2.0) 03/27/18 00:35 Ur Leukocyte Esterase Large (Negative) H 03/27/18 00:35 Urine WBC 20 /hpf (0-5) H 03/27/18 00:35 Ur Squamous Epith Cells 1 /hpf (0-4) 03/27/18 00:35 Amorphous Sediment Rare /hpf (None) H 03/27/18 00:35 Urine Mucus Rare /hpf (None) H 03/27/18 00:35 Vancomycin Trough 11.9 ug/mL 03/28/18 11:51 Microbiology 03/27/18 00:35 Urine,Voided Urine Culture - Final 03/27/18 17:10 Sputum Gram Stain - Preliminary 03/27/18 17:10 Sputum Sputum Culture - Preliminary 03/26/18 23:15 Blood Blood Culture - Preliminary No Growth after 24 hours Assessment and Plan (1) Intravenous drug abuse Current Visit: Yes Status: Acute Code(s): F19.10 - OTHER PSYCHOACTIVE SUBSTANCE ABUSE, UNCOMPLICATED SNOMED Code(s): 074494764 (2) Pneumonia Narrative/Plan: 67 year old male with active IDU with Heroin, presents with fever progressive fatigue and malaise with some cough and sputum production without hemoptysis or chest pain. Patient is noted to have of 102, leukocytosis and abnormal chest x -ray . at this time cultures are in process and the patient is feeling better since admission. Fluids, antibiotic therapy have allowed marked improvement.the patient's urinalysis is mildly abnormal, the patient relates that he is not completely emptying his bladder. We have asked nursing staff to perform a post void bladder scan to quantify the residual volume. If elevated will need further evaluation, as could be portal of infection. Antibiotic therapy with Vanco and Levaquin for now while cultures are in process. Will likely go back to rehab at discharge, hopefully blood culture negative because IV antibiotic not allowed at rehab. 03/28/2018 patient is feeling better today. Cultures are in process. Fortunately is responding well to current antibiotic therapy, cultures will further help direct antimicrobial therapy as he gets ready for discharge. Because of her going back to rehab he would not be able to be on outpatient intravenous antibiotic therapy. He has noted fevers have completely resolved, leukocytosis is improved from 17.9 8.6. Has been able to eat his meals without great difficulties.we discussed smoking cessation and the many difficulties that tobacco causes especially with metabolism and healing. Patch is in place. He is inquiring if he can have Chantix when he goes home. Current Visit: Yes Status: Acute Code(s): J18.9 - PNEUMONIA, UNSPECIFIED ORGANISM SNOMED Code(s): 620658832
[2018-03-29] MEDS: SODIUM CHLORIDE 0.9% 1,000 ML IV SCH ×6 (00:01→16:40)
[2018-03-29] MEDS: VANCOMYCIN 1,000 MG in SODIUM CHLORIDE 0.9% 250 ML IVPB SCH ×2 (01:08→16:57)
[2018-03-29] MEDS: LEVOFLOXACIN 750MG-D5W PMX 750 MG in DEXTROSE/WATER 1 150ML.BAG IVPB SCH (08:17)
[2018-03-29] MEDS: NICOTINE 21MG/24HR PATCH TRANSDERM SCH (08:19)
[2018-03-29] MEDS: ACETAMINOPHEN TAB 325 MG TAB PO PRN (08:21)
[2018-03-29] MEDS: IPRATROPIUM-ALBUTEROL 3 ML NEB INHALATION SCH ×3 (08:31→21:05)
[2018-03-29 08:39] LABS: Basophils % (A) 1 %; Eosinophils # (A) 0.6 k/uL (0-0.7); Eosinophils % (A) 8 %; HGB 11.9 gm/dL (13.0-17.5); Hypochromasia Slight; Lymphocytes % (A) 13 %; MCH 27.3 pg (25.0-35.0); MCHC 30.6 g/dL (31.0-37.0); MCV 89.3 fL (80.0-100.0); Mean Platelet Volume 6.9; Monocytes # (A) 0.6 k/uL (0-1.0); Monocytes % (A) 8 %; Neutrophils # (A) 5.3 k/uL (1.3-7.7); Neutrophils % (A) 68 %; Platelet Count 335 k/uL (150-450); RBC 4.36 m/uL (4.30-5.90); RDW 14.6 % (11.5-15.5); WBC 7.8 k/uL (3.8-10.6)
--- NOTE | 2018-03-29 08:57 | P.PN ---
Subjective This is a pleasant 67 years old male with past medical history of COPD, loose arthritis, right upper lobe lung cancer status post surgery in 2014, status post radial and chemotherapy. Hepatitis C. Multiple joint disease. History of MRSA. Her presents because of shortness of breath and fever of 2 days' duration with no associated chest pain. via EMS from [place] where he is undergoing treatment for heroin addiction. Patient reports that his last use of IV heroin was Sunday of last week, 6 days ago. Patient reports prior upper respiratory tract symptoms. Patient has, yellow phlegm. Chest x-ray shows right lower lobe infiltrate 03/28/2018 Patient today's ID consult is appreciated. Patient continue on IV antibiotics IV vancomycin and Levaquin, cultures are still pending. We'll check and a bladder scan: Pending pt does not have any breathing difficulty , no chest pain , pt feels better already. he is out of bed easily with no difficulty in movement. Objective - Vital Signs Vital signs: Vital Signs Temp 96.1 F L 03/28/18 05:00 Pulse 92 03/28/18 14:25 Resp 16 03/28/18 08:40 BP 148/91 03/28/18 05:00 Pulse Ox 94 L 03/28/18 05:00 Intake & Output 03/27/18 03/28/18 03/28/18 18:59 06:59 18:59 Intake Total 240 1590 1360 Balance 240 1590 1360 Weight 52.163 kg Intake: Intake, IV Titration 1000 1000 Amount Sodium Chloride 0.9% 1, 1000 1000 000 ml @ 125 mls/hr IV . Q8H [facility] Rx#:[id number] Oral 240 590 360 Other: Voiding Method Toilet Toilet Toilet # Voids 2 5 5 - Exam GENERAL: The patient is alert and oriented x3, not in any acute distress. Well developed, well nourished. HEENT: Pupils are round and equally reacting to light. EOMI. No scleral icterus. No conjunctival pallor. Normocephalic, atraumatic. No pharyngeal erythema. No thyromegaly. CARDIOVASCULAR: S1 and S2 present. No murmurs, rubs, or gallops. PULMONARY: Chest is clear to auscultation, no wheezing or crackles. ABDOMEN: Soft, nontender, nondistended, normoactive bowel sounds. No palpable organomegaly. MUSCULOSKELETAL: No joint swelling or deformity. EXTREMITIES: No cyanosis, clubbing, or pedal edema. NEUROLOGICAL: Gross neurological examination did not reveal any focal deficits. SKIN: No rashes. - Labs CBC & Chem 7: 03/29/18 07:34 03/28/18 06:51 Labs: Abnormal Lab Results - Last 24 Hours (Table) 03/28/18 03/28/18 Range/Units 06:51 06:51 RBC 4.25 L (4.30-5.90) m/uL Hgb 12.0 L (13.0-17.5) gm/dL Hct 38.3 L (39.0-53.0) % Lymphocytes # 0.9 L (1.0-4.8) k/uL Chloride 113 H (98-107) mmol/L Carbon Dioxide 21 L (22-30) mmol/L Microbiology - Last 24 Hours (Table) 03/27/18 00:35 Urine Culture - Final Urine,Voided 03/27/18 17:10 Gram Stain - Preliminary Sputum Sputum Culture - Preliminary 03/26/18 23:15 Blood Culture - Preliminary Blood No Growth after 24 hours Assessment and Plan Assessment: Community-acquired pneumonia, right lower lobe COPD with acute exacerbation Heroin addict, currently in [place] Current smoker, about half pack per day. Nicotine patch h/o arthritis, Multiple joint disease h/o right upper lobe lung cancer status post surgery in 2013, status post radial and chemotherapy Hepatitis C History of MRSA. Plan: This is a pleasant 67 years old male with past medical history of COPD and lung cancer, presents with pneumonia. Continue same treatment. Continue with symptomatic treatment. Resume home medication. Monitor lytes and vitals. Resume home medications. Continue with antibiotics. Follow-up culture results. Continue with IV fluids. Continue the breathing treatments and oxygen. Pulmonary consult, and consult also infectious disease GI and DVT prophylaxis. Further recommendation based on the clinical course of the patient DVT prophylaxis subcutaneous heparin GI prophylaxis Pepcid PT/OT: Pending
[2018-03-29 08:58] LABS: Anion Gap 6 mmol/L; Blood Urea Nitrogen 20 mg/dL (9-20); Calcium 8.6 mg/dL (8.4-10.2); Carbon Dioxide 21 mmol/L (22-30); Chloride 113 mmol/L (98-107); Glucose 89 mg/dL (74-99); Potassium 4.2 mmol/L (3.5-5.1); Sodium 140 mmol/L (137-145)
[2018-03-29] MEDS: MULTIVITAMINS, THERA 1 EACH TAB PO SCH (12:59)
[2018-03-29] MEDS ORDERED: KETOROLAC 30 MG/ML 1 ML VIAL IVP STA (17:22)
[2018-03-29] MEDS: SYMBICORT 160-4.5 MCG INHALER INHALATION SCH ×2 (21:00→21:05)
--- NOTE | 2018-03-29 23:41 | P.PN ---
Subjective Progress Note Date: 03/29/18 This is a 67-year-old male patient who has a significant past medical history for lung cancer, unknown type treated in 2014 status post right upper lobectomy followed by chemotherapy and radiation therapy. He had no follow-up since 2014. Note the patient has a port that remains in place since that time. He has history of IV drug abuse starting when he was 16 years of age using heroin. His last heroin use was one week ago and he usually injects in his legs mostly his right leg around the knee area. He denies ever using his port for heroin. He recently entered [facility] for rehab and has done this on occasions in the past and was abstinent from heroin for up to 6 years. he states that 2 days ago he started having a fever and felt very fatigued and his legs felt like lead. He also developed shortness of breath. He has a chronic cough that is usually white production but now he has a continued cough with sputum of yellow and green color. He denies any blood in his sputum. He denies history of MRSA. He has had no nausea or vomiting but decreased appetite for the last couple of days. His bowel movements have been soft but not diarrhea. He denies any skin changes or abscesses from IV injection. He does complain of chronic right groin pain that makes it sometimes difficult to ambulate. Patient came into [facility] emergency center for evaluation where he was found to be tachycardic, temperature 102, white count 17.9. Urine was clear, leukoesterase large and PVCs 20. Patient denies any urinary pain or burning. Chest x-ray revealed pleural diaphragmatic scarring at the right lung base and also pleural thickening at the right lung apex. There is slight volume loss. Underlying COPD. Subtle increased density in the right lower lobe at the right pulmonary hilum that could relate to minimal infiltrate. Patient was given cefepime and vancomycin and admitted to the [facility] floor. Echocardiogram ordered, blood cultures status received. Patient is currently homeless. 03/28/2018 patient is feeling better today. He is less short of breath. Not having fevers.he is inquiring when he was well enough to be discharged to go back to rehab. 03/29/2018 patient not feeling as well today as he was. His cough has increased he has more sputum production he feels more fatigue and malaise. He however is denying high-grade fevers or chills but is having a low-grade temperature which makes him feel poorly. Objective - Vital Signs Vital signs: Vital Signs Temp 98.8 F 03/29/18 21:00 Pulse 92 03/29/18 21:30 Resp 16 03/29/18 21:00 BP 166/99 03/29/18 21:00 Pulse Ox 96 03/29/18 21:00 Intake & Output 03/29/18 03/29/18 03/30/18 06:59 18:59 06:59 Intake Total 2280 1350 590 Balance 2280 1350 590 Weight 52.163 kg Intake: Intake, IV Titration 1450 1350 Amount Levofloxacin 750Mg-D5w 100 Pmx 750 mg In Dextrose/ Water 1 150ml.bag @ 100 mls/hr IVPB Q24H [facility] Rx#: [id number] Sodium Chloride 0.9% 1, 1200 1000 000 ml @ 125 mls/hr IV . Q8H [facility] Rx#:[id number] Vancomycin 1,000 mg In 250 250 Sodium Chloride 0.9% 250 ml @ 125 mls/hr IVPB Q12H [facility] Rx#:[id number] Oral 830 590 Other: Voiding Method Toilet Toilet Toilet # Voids 3 3 2 - Exam Gen: This is a 67-year-old cachectic appearing male patient seen in the ER. Patient is on a stretcher and appears to be comfortable. No respiratory distress is noted. HEENT: Head is atraumatic, normocephalic. Pupils equal, round. Sclerae is anicteric. Oral mucous membranes are moist. No thrush noted. NECK: Supple. No JVD. No lymphadenopathy. No thyromegaly. LUNGS: Scattered inspiratory expiratory wheezing with good air exchange. No intercostal retractions. HEART: Regular rate and rhythm. No murmur. Port to the right upper anterior chest wall, no tenderness, erythema. ABDOMEN: Soft. Bowel sounds are present. No masses. No tenderness. EXTREMITIES: No pedal edema. No calf tenderness.Dorsalis pedis +2 bilaterally. Patient has old puncture sites to the knee areas on both legs more so on the right. No signs of abscess, open wound, drainage. No tender areas. Patient does have some tenderness to the right groin area. NEUROLOGICAL: Patient is awake, alert and oriented x3 - Labs CBC & Chem 7: 03/29/18 07:34 03/29/18 07:34 Labs: Abnormal Lab Results - Last 24 Hours (Table) 03/29/18 03/29/18 Range/Units 07:34 07:34 Hgb 11.9 L (13.0-17.5) gm/dL MCHC 30.6 L (31.0-37.0) g/dL Chloride 113 H (98-107) mmol/L Carbon Dioxide 21 L (22-30) mmol/L Microbiology - Last 24 Hours (Table) 03/27/18 17:10 Gram Stain - Preliminary Sputum Sputum Culture - Preliminary 03/26/18 23:15 Blood Culture - Preliminary Blood No Growth after 48 hours Laboratory Results WBC 7.8 k/uL (3.8-10.6) 03/29/18 07:34 RBC 4.36 m/uL (4.30-5.90) 03/29/18 07:34 Hgb 11.9 gm/dL (13.0-17.5) L 03/29/18 07:34 Hct 39.0 % (39.0-53.0) 03/29/18 07:34 MCV 89.3 fL (80.0-100.0) 03/29/18 07:34 MCH 27.3 pg (25.0-35.0) 03/29/18 07:34 MCHC 30.6 g/dL (31.0-37.0) L 03/29/18 07:34 RDW 14.6 % (11.5-15.5) 03/29/18 07:34 Plt Count 335 k/uL (150-450) 03/29/18 07:34 Neutrophils % 68 % 03/29/18 07:34 Lymphocytes % 13 % 03/29/18 07:34 Monocytes % 8 % 03/29/18 07:34 Eosinophils % 8 % 03/29/18 07:34 Basophils % 1 % 03/29/18 07:34 Neutrophils # 5.3 k/uL (1.3-7.7) 03/29/18 07:34 Lymphocytes # 1.0 k/uL (1.0-4.8) 03/29/18 07:34 Monocytes # 0.6 k/uL (0-1.0) 03/29/18 07:34 Eosinophils # 0.6 k/uL (0-0.7) 03/29/18 07:34 Basophils # 0.0 k/uL (0-0.2) 03/29/18 07:34 Hypochromasia Slight 03/29/18 07:34 PT 9.7 sec (9.0-12.0) 03/26/18 23:15 INR 1.0 (<1.2) 03/26/18 23:15 APTT 24.4 sec (22.0-30.0) 03/26/18 23:15 Sodium 140 mmol/L (137-145) 03/29/18 07:34 Potassium 4.2 mmol/L (3.5-5.1) 03/29/18 07:34 Chloride 113 mmol/L (98-107) H 03/29/18 07:34 Carbon Dioxide 21 mmol/L (22-30) L 03/29/18 07:34 Anion Gap 6 mmol/L 03/29/18 07:34 BUN 20 mg/dL (9-20) 03/29/18 07:34 Creatinine 0.76 mg/dL (0.66-1.25) 03/29/18 07:34 Est GFR (CKD-EPI)AfAm >90 (>60 ml/min/1.73 sqM) 03/29/18 07:34 Est GFR (CKD-EPI)NonAf >90 (>60 ml/min/1.73 sqM) 03/29/18 07:34 Glucose 89 mg/dL (74-99) 03/29/18 07:34 Plasma Lactic Acid Sunday 1.0 mmol/L (0.7-2.0) 03/26/18 23:15 Calcium 8.6 mg/dL (8.4-10.2) 03/29/18 07:34 Total Bilirubin 0.3 mg/dL (0.2-1.3) 03/26/18 23:15 AST 25 U/L (17-59) 03/26/18 23:15 ALT 32 U/L (21-72) 03/26/18 23:15 Alkaline Phosphatase 59 U/L (38-126) 03/26/18 23:15 Troponin I <0.012 ng/mL (0.000-0.034) 03/26/18 23:15 Total Protein 7.0 g/dL (6.3-8.2) 03/26/18 23:15 Albumin 3.7 g/dL (3.5-5.0) 03/26/18 23:15 Urine Color Yellow 03/27/18 00:35 Urine Appearance Clear (Clear) 03/27/18 00:35 Urine pH 6.5 (5.0-8.0) 03/27/18 00:35 Ur Specific [place] 1.013 (1.001-1.035) 03/27/18 00:35 Urine Protein 1+ (Negative) H 03/27/18 00:35 Urine Glucose (UA) Negative (Negative) 03/27/18 00:35 Urine Ketones Negative (Negative) 03/27/18 00:35 Urine Blood Negative (Negative) 03/27/18 00:35 Urine Nitrite Negative (Negative) 03/27/18 00:35 Urine Bilirubin Negative (Negative) 03/27/18 00:35 Urine Urobilinogen <2.0 mg/dL (<2.0) 03/27/18 00:35 Ur Leukocyte Esterase Large (Negative) H 03/27/18 00:35 Urine WBC 20 /hpf (0-5) H 18 00:35 Ur Squamous Epith Cells 1 /hpf (0-4) 03/27/18 00:35 Amorphous Sediment Rare /hpf (None) H 18 00:35 Urine Mucus Rare /hpf (None) H 18 00:35 Vancomycin Trough 11.9 ug/mL 03/28/18 11:51 Microbiology 03/27/18 17:10 Sputum Gram Stain - Preliminary 03/27/18 17:10 Sputum Sputum Culture - Preliminary 03/26/18 23:15 Blood Blood Culture - Preliminary No Growth after 48 hours 03/27/18 00:35 Urine,Voided Urine Culture - Final - Imaging and Cardiology Chest x-ray: report reviewed (No new acute changes superimposed has history of lung cancer and pneumonia) Assessment and Plan (1) Intravenous drug abuse Current Visit: Yes Status: Acute Code(s): F19.10 - OTHER PSYCHOACTIVE SUBSTANCE ABUSE, UNCOMPLICATED SNOMED Code(s): 585883726 (2) Pneumonia Narrative/Plan: 67 year old male with active IDU with Heroin, presents with fever progressive fatigue and malaise with some cough and sputum production without hemoptysis or chest pain. Patient is noted to have of 102, leukocytosis and abnormal chest x -ray . at this time cultures are in process and the patient is feeling better since admission. Fluids, antibiotic therapy have allowed marked improvement.the patient's urinalysis is mildly abnormal, the patient relates that he is not completely emptying his bladder. We have asked nursing staff to perform a post void bladder scan to quantify the residual volume. If elevated will need further evaluation, as could be portal of infection. Antibiotic therapy with Vanco and Levaquin for now while cultures are in process. Will likely go back to rehab at discharge, hopefully blood culture negative because IV antibiotic not allowed at rehab. 03/28/2018 patient is feeling better today. Cultures are in process. Fortunately is responding well to current antibiotic therapy, cultures will further help direct antimicrobial therapy as he gets ready for discharge. Because of her going back to rehab he would not be able to be on outpatient intravenous antibiotic therapy. He has noted fevers have completely resolved, leukocytosis is improved from 17.9 8.6. Has been able to eat his meals without great difficulties.we discussed smoking cessation and the many difficulties that tobacco causes especially with metabolism and healing. Patch is in place. He is inquiring if he can have Chantix when he goes home. 03/29/2018 patient not feeling as well today. We'll continue current antibiotic therapy. Cultures are process but have been negative so far. He is not having fever or significant leukocytosis this time. Continue with nutritional support and maneuvers for smoking cessation at his discharge. If improved maybe to be discharged tomorrow on oral levofloxacin for 7 days for his complicated pneumonia that could be gram-negative. Current Visit: Yes Status: Acute Code(s): J18.9 - PNEUMONIA, UNSPECIFIED ORGANISM SNOMED Code(s): 184005605
[2018-03-30] MEDS: VANCOMYCIN 1,000 MG in SODIUM CHLORIDE 0.9% 250 ML IVPB SCH ×2 (01:38→12:57)
[2018-03-30] MEDS: SODIUM CHLORIDE 0.9% 1,000 ML IV SCH ×5 (05:53→16:22)
[2018-03-30 07:30] LABS: Basophils # (A) 0.1 k/uL (0-0.2); Basophils % (A) 1 %; Eosinophils # (A) 0.7 k/uL (0-0.7); Eosinophils % (A) 10 %; HCT 39.6 % (39.0-53.0); HGB 12.8 gm/dL (13.0-17.5); Hypochromasia Slight; Lymphocytes # (A) 0.9 k/uL (1.0-4.8); Lymphocytes % (A) 13 %; MCH 28.9 pg (25.0-35.0); MCHC 32.3 g/dL (31.0-37.0); MCV 89.3 fL (80.0-100.0); Mean Platelet Volume 7.5; Monocytes # (A) 0.7 k/uL (0-1.0); Monocytes % (A) 11 %; Neutrophils # (A) 4.3 k/uL (1.3-7.7); Neutrophils % (A) 63 %; Platelet Count 314 k/uL (150-450); RBC 4.44 m/uL (4.30-5.90); RDW 14.7 % (11.5-15.5); WBC 6.8 k/uL (3.8-10.6)
[2018-03-30 07:39] LABS: Anion Gap 6 mmol/L; Blood Urea Nitrogen 25 mg/dL (9-20); Carbon Dioxide 21 mmol/L (22-30); Chloride 114 mmol/L (98-107); Glucose 93 mg/dL (74-99); Potassium 4.6 mmol/L (3.5-5.1); Sodium 141 mmol/L (137-145)
[2018-03-30] MEDS: NICOTINE 21MG/24HR PATCH TRANSDERM SCH (07:48)
[2018-03-30] MEDS: IPRATROPIUM-ALBUTEROL 3 ML NEB INHALATION SCH ×3 (08:36→20:49)
[2018-03-30] MEDS: SYMBICORT 160-4.5 MCG INHALER INHALATION SCH ×2 (08:38→20:49)
[2018-03-30] MEDS: LEVOFLOXACIN 750 MG TAB PO SCH (10:37)
[2018-03-30] MEDS: MULTIVITAMINS, THERA 1 EACH TAB PO SCH (12:57)
[2018-03-30] MEDS: ACETAMINOPHEN TAB 325 MG TAB PO PRN (21:43)
[2018-03-31] MEDS ORDERED: VANCOMYCIN TROUGH DUE 1 EACH MISC MISCELLANE ONE
[2018-03-31] MEDS: VANCOMYCIN 1,000 MG in SODIUM CHLORIDE 0.9% 250 ML IVPB SCH (01:41)
[2018-03-31] MEDS ORDERED: CALCIUM CARBONATE 500 MG CHEWABLE PO PRN (01:44)
[2018-03-31] MEDS: SODIUM CHLORIDE 0.9% 1,000 ML IV SCH ×3 (05:02→15:42)
[2018-03-31 07:59] LABS: Anion Gap 8 mmol/L; Calcium 9.7 mg/dL (8.4-10.2); Carbon Dioxide 23 mmol/L (22-30); Chloride 110 mmol/L (98-107); Glucose 95 mg/dL (74-99); Sodium 141 mmol/L (137-145)
[2018-03-31 08:03] LABS: Blood Urea Nitrogen 21 mg/dL (9-20); Potassium 4.9 mmol/L (3.5-5.1)
[2018-03-31] MEDS: IPRATROPIUM-ALBUTEROL 3 ML NEB INHALATION SCH ×3 (08:21→20:24)
[2018-03-31] MEDS: MULTIVITAMINS, THERA 1 EACH TAB PO SCH (08:21)
[2018-03-31] MEDS: NICOTINE 21MG/24HR PATCH TRANSDERM SCH (08:21)
[2018-03-31] MEDS: LEVOFLOXACIN 750 MG TAB PO SCH (08:21)
[2018-03-31] MEDS: SYMBICORT 160-4.5 MCG INHALER INHALATION SCH ×2 (08:21→20:24)
[2018-03-31] MEDS: ACETAMINOPHEN TAB 325 MG TAB PO PRN (09:24)
[2018-03-31] MEDS: VANCOMYCIN 1,250 MG in SODIUM CHLORIDE 0.9% 250 ML IVPB SCH (12:58)
--- NOTE | 2018-03-31 14:01 | P.PN ---
Subjective Progress Note Date: 03/29/18 Patient came into [facility] emergency center for evaluation where he was found to be tachycardic, temperature 102, white count 17.9. Urine was clear, leukoesterase large and PVCs 20. Patient denies any urinary pain or burning. Chest x-ray revealed pleural diaphragmatic scarring at the right lung base and also pleural thickening at the right lung apex. There is slight volume loss. Underlying COPD. Subtle increased density in the right lower lobe at the right pulmonary hilum that could relate to minimal infiltrate. Patient was given cefepime and vancomycin and admitted to the [facility] floor. Echocardiogram ordered, blood cultures status received. Patient is currently homeless. 03/29/2018 patient not feeling as well today as he was. His cough has increased he has more sputum production he feels more fatigue and malaise. He however is denying high-grade fevers or chills but is having a low-grade temperature which makes him feel poorly. Objective - Vital Signs Vital signs: Vital Signs Temp 99.5 F 03/29/18 08:04 Pulse 96 03/29/18 08:43 Resp 22 03/29/18 08:04 BP 154/84 03/29/18 08:04 Pulse Ox 96 03/29/18 08:04 Intake & Output 03/28/18 03/29/18 03/29/18 18:59 06:59 18:59 Intake Total 1360 2280 Balance 1360 2280 Weight 52.163 kg Intake: Intake, IV Titration 1000 1450 Amount Sodium Chloride 0.9% 1, 1000 1200 000 ml @ 125 mls/hr IV . Q8H [facility] Rx#:[id number] Vancomycin 1,000 mg In 250 Sodium Chloride 0.9% 250 ml @ 125 mls/hr IVPB Q12H [facility] Rx#:[id number] Oral 360 830 Other: Voiding Method Toilet Toilet Toilet # Voids 5 3 - Exam - Constitutional General appearance: Present: average body habitus, cooperative, no acute distress - EENT Eyes: Present: anicteric sclerae, EOMI, PERRLA, normal appearance ENT: Present: hearing grossly normal, normal oropharynx Ears: bilateral: normal - Neck Neck: Present: normal ROM. Absent: lymphadenopathy, rigidity, thyromegaly Carotids: negative: bruit present Thyroid: bilateral: normal size, negative: enlarged, nodule - Respiratory Respiratory: bilateral: CTA, negative: rales, rhonchi, wheezing - Cardiovascular Rhythm: regular Heart sounds: normal: S1, S2 Abnormal Heart Sounds: Absent: systolic murmur, diastolic murmur - Gastrointestinal General gastrointestinal: Present: normal bowel sounds, soft. Absent: distended , organomegaly, tenderness - Genitourinary Genitourinary Comment(s): deferred - Integumentary Integumentary: Present: normal turgor. Absent: jaundiced, rash, ulcer - Neurologic Neurologic: Present: CNII-XII intact. Absent: focal deficits - Musculoskeletal Musculoskeletal: Present: gait normal, strength equal bilaterally - Psychiatric Psychiatric: Present: A&O x's 3, appropriate affect, intact judgment & insight - Labs CBC & Chem 7: 03/30/18 06:47 03/31/18 07:23 Labs: Abnormal Lab Results - Last 24 Hours (Table) 03/29/18 03/29/18 Range/Units 07:34 07:34 Hgb 11.9 L (13.0-17.5) gm/dL MCHC 30.6 L (31.0-37.0) g/dL Chloride 113 H (98-107) mmol/L Carbon Dioxide 21 L (22-30) mmol/L Microbiology - Last 24 Hours (Table) 03/27/18 17:10 Gram Stain - Preliminary Sputum Sputum Culture - Preliminary 03/26/18 23:15 Blood Culture - Preliminary Blood No Growth after 48 hours 03/27/18 00:35 Urine Culture - Final Urine,Voided Assessment and Plan Assessment: Community-acquired pneumonia, right lower lobe COPD with acute exacerbation Heroin addict, currently in [place] Current smoker, about half pack per day. Nicotine patch h/o arthritis, Multiple joint disease h/o right upper lobe lung cancer status post surgery in 2014, status post radial and chemotherapy Hepatitis C History of MRSA. Plan: This is a pleasant 67 years old male with past medical history of COPD and lung cancer, presents with pneumonia. Continue same treatment. Continue with symptomatic treatment. Resume home medication. Monitor lytes and vitals. Resume home medications. Continue with antibiotics. Follow-up culture results. Continue with IV fluids. Continue the breathing treatments and oxygen. Pulmonary consult, and consult also infectious disease GI and DVT prophylaxis. Further recommendation based on the clinical course of the patient DVT prophylaxis subcutaneous heparin GI prophylaxis Pepcid Time with Patient: Greater than 30
--- NOTE | 2018-03-31 14:02 | P.PN ---
Subjective Progress Note Date: 03/30/18 Patient came into [facility] emergency center for evaluation where he was found to be tachycardic, temperature 102, white count 17.9. Urine was clear, leukoesterase large and PVCs 20. Patient denies any urinary pain or burning. Chest x-ray revealed pleural diaphragmatic scarring at the right lung base and also pleural thickening at the right lung apex. There is slight volume loss. Underlying COPD. Subtle increased density in the right lower lobe at the right pulmonary hilum that could relate to minimal infiltrate. Patient was given cefepime and vancomycin and admitted to the [facility] floor. Echocardiogram ordered, blood cultures status received. Patient is currently homeless. 03/29/2018 patient not feeling as well today as he was. His cough has increased he has more sputum production he feels more fatigue and malaise. He however is denying high-grade fevers or chills but is having a low-grade temperature which makes him feel poorly. 03/30/2018 Patient is seen and evaluated in the room at bedside; he continues to complain of left amount of sputum production; denies any fever and chills but continues to feel weak and lethargic Objective - Vital Signs Vital signs: Vital Signs Temp 98.3 F 03/31/18 05:00 Pulse 104 H 03/31/18 13:42 Resp 16 03/31/18 05:00 BP 138/90 03/31/18 05:00 Pulse Ox 98 03/31/18 05:00 Intake & Output 03/30/18 03/31/18 03/31/18 18:59 06:59 18:59 Intake Total 600 590 Output Total 550 Balance 50 590 Intake: IV 350 Sodium Chloride 0.9% 1, 350 000 ml @ 125 mls/hr IV . Q8H [facility] Rx#:[id number] Intake, IV Titration 250 Amount Vancomycin 1,000 mg In 250 Sodium Chloride 0.9% 250 ml @ 125 mls/hr IVPB Q12H [facility] Rx#:[id number] Oral 590 Output: Urine 550 Other: Voiding Method Toilet Toilet # Voids 2 - Exam - Constitutional General appearance: Present: average body habitus, cooperative, no acute distress - EENT Eyes: Present: anicteric sclerae, EOMI, PERRLA, normal appearance ENT: Present: hearing grossly normal, normal oropharynx Ears: bilateral: normal - Neck Neck: Present: normal ROM. Absent: lymphadenopathy, rigidity, thyromegaly Carotids: negative: bruit present Thyroid: bilateral: normal size, negative: enlarged, nodule - Respiratory Respiratory: bilateral: CTA, negative: rales, rhonchi, wheezing - Cardiovascular Rhythm: regular Heart sounds: normal: S1, S2 Abnormal Heart Sounds: Absent: systolic murmur, diastolic murmur - Gastrointestinal General gastrointestinal: Present: normal bowel sounds, soft. Absent: distended , organomegaly, tenderness - Genitourinary Genitourinary Comment(s): deferred - Integumentary Integumentary: Present: normal turgor. Absent: jaundiced, rash, ulcer - Neurologic Neurologic: Present: CNII-XII intact. Absent: focal deficits - Musculoskeletal Musculoskeletal: Present: gait normal, strength equal bilaterally - Psychiatric Psychiatric: Present: A&O x's 3, appropriate affect, intact judgment & insight - Labs CBC & Chem 7: 03/30/18 06:47 03/31/18 07:23 Labs: Abnormal Lab Results - Last 24 Hours (Table) 03/31/18 Range/Units 07:23 Chloride 110 H (98-107) mmol/L BUN 21 H (9-20) mg/dL Microbiology - Last 24 Hours (Table) 03/26/18 23:15 Blood Culture - Preliminary Blood No Growth after 96 hours 03/27/18 17:10 Gram Stain - Final Sputum Sputum Culture - Final Assessment and Plan Assessment: Community-acquired pneumonia, right lower lobe COPD with acute exacerbation Heroin addict, currently in [place] Current smoker, about half pack per day. Nicotine patch h/o arthritis, Multiple joint disease h/o right upper lobe lung cancer status post surgery in 2013, status post radial and chemotherapy Hepatitis C History of MRSA. Plan: This is a pleasant 67 years old male with past medical history of COPD and lung cancer, presents with pneumonia. Continue same treatment. Continue with symptomatic treatment. Resume home medication. Monitor lytes and vitals. Resume home medications. Continue with antibiotics. Follow-up culture results. Continue with IV fluids. Continue the breathing treatments and oxygen. Pulmonary consult, and consult also infectious disease GI and DVT prophylaxis. Further recommendation based on the clinical course of the patient DVT prophylaxis subcutaneous heparin GI prophylaxis Pepcid Time with Patient: Greater than 30
--- NOTE | 2018-03-31 17:04 | P.PN ---
Subjective Progress Note Date: 03/31/18 Patient came into [facility] emergency [facility] for evaluation where he was found to be tachycardic, temperature 102, white count 17.9. Urine was clear, leukoesterase large and PVCs 20. Patient denies any urinary pain or burning. Chest x-ray revealed pleural diaphragmatic scarring at the right lung base and also pleural thickening at the right lung apex. There is slight volume loss. Underlying COPD. Subtle increased density in the right lower lobe at the right pulmonary hilum that could relate to minimal infiltrate. Patient was given cefepime and vancomycin and admitted to the [facility] floor. Echocardiogram ordered, blood cultures status received. Patient is currently homeless. 03/29/2018 patient not feeling as well today as he was. His cough has increased he has more sputum production he feels more fatigue and malaise. He however is denying high-grade fevers or chills but is having a low-grade temperature which makes him feel poorly. 03/30/2018 Patient is seen and evaluated in the room at bedside; he continues to complain of left amount of sputum production; denies any fever and chills but continues to feel weak and lethargic 03/31/2018 Patient is seen and evaluated in the room at bedside; patient relates he still gets quite short of breath while ambulating to the bathroom; still has cough with moderate amount of yellow-green phlegm; vital signs remained stable with a temperature of 98 heart rate ranging between 104 to 115; patient is saturating 97% on room air; we will continue bronchodilator nebulizer treatment with DuoNeb 3 times a day along with Symbicort inhaler 2 puffs twice a day; patient is switched to oral Levaquin 750 mg every 24 hours; we plan to monitor patient and is a 24 hours and possible discharge home on oral Levaquin to complete a total of 10 day course of antibiotic treatment Objective - Vital Signs Vital signs: Vital Signs Temp 98.3 F 03/31/18 05:00 Pulse 104 H 03/31/18 13:42 Resp 16 03/31/18 05:00 BP 138/90 03/31/18 05:00 Pulse Ox 98 03/31/18 05:00 Intake & Output 03/30/18 03/31/18 03/31/18 18:59 06:59 18:59 Intake Total 600 590 Output Total 550 Balance 50 590 Intake: IV 350 Sodium Chloride 0.9% 1, 350 000 ml @ 125 mls/hr IV . Q8H [facility] Rx#:[id number] Intake, IV Titration 250 Amount Vancomycin 1,000 mg In 250 Sodium Chloride 0.9% 250 ml @ 125 mls/hr IVPB Q12H [facility] Rx#:[id number] Oral 590 Output: Urine 550 Other: Voiding Method Toilet Toilet # Voids 2 - Exam - Constitutional General appearance: Present: average body habitus, cooperative, no acute distress - EENT Eyes: Present: anicteric sclerae, EOMI, PERRLA, normal appearance ENT: Present: hearing grossly normal, normal oropharynx Ears: bilateral: normal - Neck Neck: Present: normal ROM. Absent: lymphadenopathy, rigidity, thyromegaly Carotids: negative: bruit present Thyroid: bilateral: normal size, negative: enlarged, nodule - Respiratory Respiratory: bilateral: CTA, negative: rales, rhonchi, wheezing - Cardiovascular Rhythm: regular Heart sounds: normal: S1, S2 Abnormal Heart Sounds: Absent: systolic murmur, diastolic murmur - Gastrointestinal General gastrointestinal: Present: normal bowel sounds, soft. Absent: distended , organomegaly, tenderness - Genitourinary Genitourinary Comment(s): deferred - Integumentary Integumentary: Present: normal turgor. Absent: jaundiced, rash, ulcer - Neurologic Neurologic: Present: CNII-XII intact. Absent: focal deficits - Musculoskeletal Musculoskeletal: Present: gait normal, strength equal bilaterally - Psychiatric Psychiatric: Present: A&O x's 3, appropriate affect, intact judgment & insight - Labs CBC & Chem 7: 03/30/18 06:47 03/31/18 07:23 Labs: Abnormal Lab Results - Last 24 Hours (Table) 03/31/18 Range/Units 07:23 Chloride 110 H (98-107) mmol/L BUN 21 H (9-20) mg/dL Microbiology - Last 24 Hours (Table) 03/26/18 23:15 Blood Culture - Preliminary Blood No Growth after 96 hours 03/27/18 17:10 Gram Stain - Final Sputum Sputum Culture - Final Assessment and Plan Assessment: Community-acquired pneumonia, right lower lobe COPD with acute exacerbation Heroin addict, currently in [place] Current smoker, about half pack per day. Nicotine patch h/o arthritis, Multiple joint disease h/o right upper lobe lung cancer status post surgery in 2014, status post radial and chemotherapy Hepatitis C History of MRSA. Plan: This is a pleasant 67 years old male with past medical history of COPD and lung cancer, presents with pneumonia. Continue same treatment. Continue with symptomatic treatment. Resume home medication. Monitor lytes and vitals. Resume home medications. Continue with antibiotics. Follow-up culture results. Continue with IV fluids. Continue the breathing treatments and oxygen. Pulmonary consult, and consult also infectious disease GI and DVT prophylaxis. Further recommendation based on the clinical course of the patient DVT prophylaxis subcutaneous heparin GI prophylaxis Pepcid Plan: discharged home in next 24 hours if remains stable on oral antibiotics Time with Patient: Greater than 30
[2018-04-01] MEDS ORDERED: ZOLPIDEM 10 MG TAB PO PRN (00:44)
[2018-04-01] MEDS: VANCOMYCIN 1,250 MG in SODIUM CHLORIDE 0.9% 250 ML IVPB SCH ×2 (01:20→12:45)
[2018-04-01] MEDS: SODIUM CHLORIDE 0.9% 1,000 ML IV SCH ×2 (01:21→08:35)
[2018-04-01] MEDS: IPRATROPIUM-ALBUTEROL 3 ML NEB INHALATION SCH ×2 (07:25→13:04)
[2018-04-01] MEDS: SYMBICORT 160-4.5 MCG INHALER INHALATION SCH (07:25)
[2018-04-01 07:28] LABS: Anion Gap 7 mmol/L; Blood Urea Nitrogen 24 mg/dL (9-20); Calcium 9.1 mg/dL (8.4-10.2); Carbon Dioxide 25 mmol/L (22-30); Chloride 108 mmol/L (98-107); Glucose 97 mg/dL (74-99); Potassium 4.8 mmol/L (3.5-5.1); Sodium 140 mmol/L (137-145)
[2018-04-01] MEDS: NICOTINE 21MG/24HR PATCH TRANSDERM SCH (08:08)
[2018-04-01] MEDS: LEVOFLOXACIN 750 MG TAB PO SCH (09:20)
[2018-04-01] MEDS: MULTIVITAMINS, THERA 1 EACH TAB PO SCH (12:45)
[2018-04-01 15:02] VITALS: BP 154/97; PULSE 123; RESP 14; TEMP 98
[2018-04-01] MEDS: ACETAMINOPHEN TAB 325 MG TAB PO PRN (15:57)
--- NOTE | 2018-04-01 18:12 | P.DS ---
Providers Date of admission: 03/27/18 00:20 Expected date of discharge: 04/01/18 Attending physician: Champ Calvin Consults: 03/27/18 00:21 Consult Physician Routine Consulting Provider: Xavier Brice Consult Reason/Comments: sepsis, pneumonia, IVDA Do you want consulting provider notified?: Yes Primary care physician: Physician Nonstaff Dr. Leydi Moeller, [facility] Course: Final Diagnoses: Community-acquired pneumonia, right lower lobe COPD with acute exacerbation Heroin addict, currently in [place] Current smoker, about half pack per day. Nicotine patch h/o arthritis, Multiple joint disease h/o right upper lobe lung cancer status post surgery in 2013, status post radial and chemotherapy Hepatitis C History of MRSA. Hospital course:This is a pleasant 67 years old male with past medical history of COPD, loose arthritis, right upper lobe lung cancer status post surgery in 2013, status post radial and chemotherapy. Hepatitis C. Multiple joint disease. History of MRSA. Her presents because of shortness of breath and fever of 2 days' duration with no associated chest pain. via EMS from [place] where he is undergoing treatment for heroin addiction. Patient reports that his last use of IV heroin was Sunday of last week, 6 days ago. Patient reports prior upper respiratory tract symptoms. Patient has, yellow phlegm. Chest x-ray shows right lower lobe infiltrate. Evaluated by infectious disease. Received IV antibiotics of vancomycin and Levaquin. Significant clinical improvement. Cleared by infectious disease for consult. Patient is being discharged to home/ [place] in a stable condition with guarded prognosis. Microbiology 03/26/18 23:15 Blood Blood Culture - Preliminary No Growth after 120 hours 03/27/18 17:10 Sputum Gram Stain - Final 03/27/18 17:10 Sputum Sputum Culture - Final 03/27/18 00:35 Urine,Voided Urine Culture - Final Exam: GENERAL: Alert and oriented 3, no acute distress.CV: Regular S1-S2, no murmurs rubs or gallops. LUNGS: Clear to auscultation, diminished bases..ABD: Soft, positive bowel sounds, nontender. NEURO: No focal deficits. The impression and plan of care has been dictated as directed. : I performed a history and examination of this patient, discussed the same with the dictator. I agree with the dictator's note ,documented as a scribe. Any additional findings or plans will be noted. Time taken: 35 minutes Patient Condition at Discharge: Stable Plan - Discharge Summary Discharge Rx Participant: Yes New Discharge Prescriptions: New Levofloxacin [Levaquin] 750 mg PO DAILY #7 tab Budesonide-Formot 160-4.5 Mcg [Symbicort 160-4.5 Mcg Inhaler] 2 puff INHALATION RT-BID #1 inh Nicotine 21Mg/24Hr Patch [Habitrol] 1 patch TRANSDERM DAILY #30 patch Omeprazole [PriLOSEC] 20 mg PO AC-BID #60 cap Continue Fluticasone/Salmeterol [Advair 250-50 Diskus] 1 puff INHALATION RT-BID@, 1730 traZODone HCL 50 - 150 mg PO HS Chlorpheniramine Maleate [Chlor-Trimeton] 4 mg PO Q4H PRN PRN Reason: Allergy Symptoms Albuterol Inhaler [Ventolin Hfa Inhaler] 1 - 2 puff INHALATION RT-Q6H PRN PRN Reason: Shortness Of Breath busPIRone HCl [Buspar] 10 mg PO DIRECTED PRN PRN Reason: Anxiety Ondansetron [Zofran] 4 mg IM Q6H PRN PRN Reason: Nausea And Vomiting Ondansetron HCl [Zofran] 8 mg PO Q6H PRN PRN Reason: Nausea And Vomiting Acetaminophen Tab [Tylenol] 650 mg PO Q4H PRN PRN Reason: Pain Calcium/Magnesium 1000mg/500mg 1 tab PO TID PRN PRN Reason: MUSCLE CRAMPS Thiamine [Vitamin B-1] 100 mg PO DAILY Multivitamins, Thera [Multivitamin (formulary)] 1 tab PO DAILY Changed Ibuprofen [Motrin] 400 mg PO Q6HR PRN #0 PRN Reason: Pain Discontinued cloNIDine HCL [Catapres] 0.1 mg PO Q4H PRN PRN Reason: HIGH BP Discharge Medication List Acetaminophen Tab [Tylenol] 650 mg PO Q4H PRN 03/27/18 [History] Albuterol Inhaler [Ventolin Hfa Inhaler] 1 - 2 puff INHALATION RT-Q6H PRN [History] Calcium/Magnesium 1000mg/500mg 1 tab PO TID PRN 03/27/18 [History] Chlorpheniramine Maleate [Chlor-Trimeton] 4 mg PO Q4H PRN 03/27/18 [History] Fluticasone/Salmeterol [Advair 250-50 Diskus] 1 puff INHALATION RT-BID@06,1730 03/27/18 [History] Multivitamins, Thera [Multivitamin (formulary)] 1 tab PO DAILY 03/27/18 [History ] Ondansetron HCl [Zofran] 8 mg PO Q6H PRN 03/27/18 [History] Ondansetron [Zofran] 4 mg IM Q6H PRN 03/27/18 [History] Thiamine [Vitamin B-1] 100 mg PO DAILY 03/27/18 [History] busPIRone HCl [Buspar] 10 mg PO DIRECTED PRN 03/27/18 [History] traZODone HCL 50 - 150 mg PO HS 03/27/18 [History] Budesonide-Formot 160-4.5 Mcg [Symbicort 160-4.5 Mcg Inhaler] 2 puff INHALATION RT-BID #1 inh 04/01/18 [Rx] Ibuprofen [Motrin] 400 mg PO Q6HR PRN #0 04/01/18 [Rx] Levofloxacin [Levaquin] 750 mg PO DAILY #7 tab 04/01/18 [Rx] Nicotine 21Mg/24Hr Patch [Habitrol] 1 patch TRANSDERM DAILY #30 patch 04/01/18 [ Rx] Omeprazole [PriLOSEC] 20 mg PO AC-BID #60 cap 04/01/18 [Rx] Follow up Appointment(s)/Referral(s): Dr.Farah Sajan PCP [Other] - 3 Days (pt stating wanting to call to make own appt ) Ambulatory/Diagnostic Orders: Complete Blood Count w/diff [LAB.AMB] Time Frame: 3 Days, Location: None Selected Patient Instructions/Handouts: Omeprazole (By mouth), Nicotine (Absorbed through the skin), Levofloxacin (By mouth), Budesonide/Formoterol (By breathing) Activity/Diet/Wound Care/Special Instructions: [place] Discharge Disposition: OTHER INSTITUTION NOT DEFINED
[2018-04-02] MEDS ORDERED: VANCOMYCIN TROUGH DUE 1 EACH MISC MISCELLANE ONE (12:00)
== END 2018-04-01 17:35 | DRG 871 ==
LOC: EC 21:34 → 5MS5E 03-27 00:20 → 5ONC 03-27 10:36
PROVIDERS: ADMIT Hospitalist; ATTEND Hospitalist
DX: A41.9 Sepsis, unspecified organism (principal); J18.9 Pneumonia, unspecified organism; F11.20 Opioid dependence, uncomplicated; J44.0 Chronic obstructive pulmonary disease with (acute) lower respiratory infection; J44.1 Chronic obstructive pulmonary disease with (acute) exacerbation; E46 Unspecified protein-calorie malnutrition; Z68.1 Body mass index [BMI] 19.9 or less, adult; B19.20 Unspecified viral hepatitis C without hepatic coma; F17.210 Nicotine dependence, cigarettes, uncomplicated; I49.3 Ventricular premature depolarization; Z59.0 Homelessness; Z82.49 Family history of ischemic heart disease and other diseases of the circulatory system; Z85.118 Personal history of other malignant neoplasm of bronchus and lung; Z86.14 Personal history of Methicillin resistant Staphylococcus aureus infection; Z90.2 Acquired absence of lung [part of]; Z92.21 Personal history of antineoplastic chemotherapy; Z92.3 Personal history of irradiation
CPT/HCPCS: 36415; 71046; 80048; 80053; 80202; 81001; 83605; 84484; 85025; 85610; 85730; 87040; 87070; 87086; 87205; 93005; 93306; 94640; 96361; 96365; 96366; 96367; 99285